=== PATIENT | female | born 1995 | race Caucasian/White ===

== ENCOUNTER 2017-05-30 20:47 | Emergency (ER) | payer SELFPAY ==
[2017-05-30] MEDS ORDERED: Lactated Ringers 1,000 ML IV ONE ×2 (21:00→21:18)
[2017-05-30 21:19] LABS: BASOPHIL % 0.2 % (0.0-0.4); Eosinophil % 1.9 % (0.00-5.0); Granulocytes % 68.6 % (36.0-66.0); Lymphocytes % 22.8 % (24.0-44.0); Mean Cell Volume 86.2 fl (78-100); Mean Platelet Volume 11.7 fl (6-9.5); Monocytes % 6.5 % (0.0-12.0); Platelet Count 159 K/mm3 (150-450); Red Cell Distribution Width 13.7 % (11.5-14.0); White Blood Count 11.5 K/mm3 (4.0-10.5)
--- NOTE | 2017-05-30 21:23 | ERPHSYRPT ---
- History of Present Illness Time Seen by Provider: 05/30/17 20:57 Source: patient Patient Subjective Stated Complaint: PT REPORTS [facility] ESTIMATED HER AT 8 WKS -STATES SHE IS UNSURE HOW ACCURATE THAT IS ET HAVEN'T BEEN ABOUT TO GO TO A DOCTOR YET-DENIES VAGINAL DISCHARGE-PT REPORTS UPPER ABD CRAMPING BEGINNING AT 1800 TONIGHT-AFTER EATING PIZZA CASSEROLE-PT DENIES DIFFICULTY WITH URINATION OR BOWELS-DENIES N/V Triage Nursing Assessment: PT PINK WARM ET DRY-ABD SOFT ET NONTENDER TO PALP- RESP EASY ET NONLABORED-BOWEL SOUNDS PRESENT Physician History: CC: abdominal pain Hx: 21 y/o patient of Dr Cervantes. She is . Recently had positive HCG at [facility]. LMP in March. She has some low right abd pain. No vaginal bleeding. No fever or chills. Ate supper. No prior abdominal surgeries. Pain moderate. Sharp in nature and low. Timing/Duration: today Allergies/Adverse Reactions: No Known Drug Allergies Allergy (Verified 05/30/17 20:59) Hx Tetanus, Diphtheria Vaccination/Date Given: Yes Hx Influenza Vaccination/Date Given: No Hx Pneumococcal Vaccination/Date Given: No - Review of Systems Constitutional: No Fever, No Chills Eyes: No Symptoms Ears, Nose, & Throat: No Symptoms Cardiac: No Chest Pain Abdominal/Gastrointestinal: Abdominal Pain, No Vomiting, No Diarrhea Genitourinary Symptoms: , No Dysuria, No Vaginal Bleeding Skin: No Rash Neurological: No Headache All Other Systems: Reviewed and Negative - Past Medical History Pertinent Past Medical History: No - Past Surgical History Past Surgical History: Yes Neuro Surgical History: Neurological Surgery Other Surgical History: neck and back - Social History Smoking Status: Never smoker Exposure to second hand smoke: Yes Drug Use: none Patient Lives Alone: No - Female History Hx Last Menstrual Period: APRIL 05 2017 Hx Now: No - Nursing Vital Signs Nursing Vital Signs: Initial Vital Signs Temperature 97.4 F 05/30/17 20:51 Pulse Rate 85 05/30/17 20:51 Respiratory Rate 20 05/30/17 20:51 Blood Pressure 123/70 05/30/17 20:51 O2 Sat by Pulse Oximetry 98 05/30/17 20:51 Pain Scale Pain Intensity 2 - Physical Exam General Appearance: alert Eye Exam: PERRL/EOMI Ears, Nose, Throat Exam: normal ENT inspection, moist mucous membranes Neck Exam: normal inspection, non-tender, supple Respiratory Exam: normal breath sounds, lungs clear Cardiovascular Exam: regular rate/rhythm Gastrointestinal/Abdomen Exam: soft, tenderness (low and right, no guarding, no mass) Extremity Exam: normal inspection, normal range of motion Neurologic Exam: alert, oriented x 3, cooperative, sensation nml, No motor deficits Skin Exam: warm, dry, No rash SpO2 Interpretation: normal SpO2: 98 Oxygen Delivery: Room Air - Course Nursing assessment & vital signs reviewed: Yes - Radiology Ultrasound Exam OB and RLQ Ultrasound: Other (per RDMS: 6+4 week IUP with FHR 122, small subchorioinc bleed , ruptured right ovarian corpus lutein cysts, RLQ shows stool in colon, no sign of appendicitis, appendix not visualized.) Ordered Tests: Active Orders 24 hr Category Date Time Status Clean Catch Urine Specimen STAT Care 05/30/17 21:00 Active IV Insertion STAT Care 05/30/17 21:00 Active ABDOMINAL-LIMITED [US] Stat Exams 05/30/17 21:43 Ordered OB TRANSVAGINAL [US] Stat Exams 05/30/17 21:44 Ordered CBC W DIFF Stat Lab 05/30/17 21:16 Completed CMP Stat Lab 05/30/17 21:16 Completed CULTURE,URINE Stat Lab 05/30/17 21:18 Received HCG, Quantitative (Inhouse) Stat Lab 05/30/17 21:16 Completed HCG,QUALITATIVE URINE Stat Lab 05/30/17 21:20 Completed UA W/ MICROSCOPIC Stat Lab 05/30/17 21:18 Completed Medication Summary Discontinued Medications Generic Name Dose Route Start Last Admin Trade Name Rosalind PRN Reason Stop Dose Admin Lactated Ringer's 1,000 mls @ 999 mls/hr 05/30/17 21:00 05/30/17 21:22 Lactated Ringers IV 05/30/17 22:00 999 mls/hr .Q1H1M ONE Administration Lactated Ringer's Confirm 05/30/17 21:18 Lactated Ringers Administered 05/30/17 21:19 Dose 1,000 mls @ ud IV .STK-MED ONE Lab/Rad Data: Laboratory Result Diagrams 05/30/17 21:16 05/30/17 21:16 Laboratory Results 05/30/17 05/30/17 05/30/17 Range/Units 21:20 21:18 21:16 WBC (4.0-10.5) K/mm3 RBC (4.1-5.4) M/mm3 Hgb (12.0-16.0) gm/dl Hct (35-47) % MCV (78-100) fl MCH (26-32) pg MCHC (32-36) g/dl RDW (11.5-14.0) % Plt Count (150-450) K/mm3 MPV (6-9.5) fl Gran % (36.0-66.0) % Lymphocytes % (24.0-44.0) % Monocytes % (0.0-12.0) % Eosinophils % (0.00-5.0) % Basophils % (0.0-0.4) % Basophils # (0-0.4) Sodium (136-145) mEq/L Potassium (3.5-5.1) mEq/L Chloride (98-107) mEq/L Carbon Dioxide (21-32) mEq/L Anion Gap (5-15) MEQ/L BUN (9-20) mg/dL Creatinine (0.55-1.30) mg/dl Estimated GFR ML/MIN Glucose (70-110) MG/DL Calcium (8.5-10.1) mg/dL Total Bilirubin (0.2-1.0) mg/dL AST (15-37) U/L ALT (12-78) U/L Alkaline Phosphatase (46-116) U/L Serum Total Protein (6.4-8.2) gm/dL Albumin (3.4-5.0) g/dL Beta HCG, Quant (0-6) IU/L Ur Collection Type VOID Urine Color YELLOW (YELLOW) Urine Appearance CLEAR (CLEAR) Urine pH 5.0 (5-6) Ur Specific [place] 1.015 (1.005-1.025) Urine Protein NEGATIVE (Negative) Urine Ketones NEGATIVE (NEGATIVE) Urine Blood NEGATIVE (0-5) Yunior/ul Urine Nitrite NEGATIVE (NEGATIVE) Urine Bilirubin NEGATIVE (NEGATIVE) Urine Urobilinogen NORMAL (0-1) mg/dL Ur Leukocyte Esterase TRACE (NEGATIVE) Urine Microscopic RBC 2-5 (0-2) /HPF Urine Microscopic WBC 0-2 (0-5) /HPF Ur Epithelial Cells MODERATE (FEW) /HPF Urine Bacteria MODERATE (NEGATIVE) /HPF Urine Mucus SLIGHT (NEGATIVE) /HPF Urine Glucose NEGATIVE (NEGATIVE) mg/dL Urine HCG, Qual POSITIVE (Negative) Specimen Received 05/30/17 2100 ABO Group A Rh Factor POSITIVE Antibody Screen NEGATIVE (NEGATIVE) 05/30/17 05/30/17 Range/Units 21:16 21:16 WBC 11.5 H (4.0-10.5) K/mm3 RBC 4.50 (4.1-5.4) M/mm3 Hgb 12.6 (12.0-16.0) gm/dl Hct 38.8 (35-47) % MCV 86.2 (78-100) fl MCH 28.0 (26-32) pg MCHC 32.5 (32-36) g/dl RDW 13.7 (11.5-14.0) % Plt Count 159 (150-450) K/mm3 MPV 11.7 H (6-9.5) fl Gran % 68.6 H (36.0-66.0) % Lymphocytes % 22.8 L (24.0-44.0) % Monocytes % 6.5 (0.0-12.0) % Eosinophils % 1.9 (0.00-5.0) % Basophils % 0.2 (0.0-0.4) % Basophils # 0.02 (0-0.4) Sodium 137 (136-145) mEq/L Potassium 3.7 (3.5-5.1) mEq/L Chloride 105 (98-107) mEq/L Carbon Dioxide 27.2 (21-32) mEq/L Anion Gap 8.6 (5-15) MEQ/L BUN 7 L (9-20) mg/dL Creatinine 0.58 (0.55-1.30) mg/dl Estimated GFR > 60 ML/MIN Glucose 94 (70-110) MG/DL Calcium 9.4 (8.5-10.1) mg/dL Total Bilirubin 0.20 (0.2-1.0) mg/dL AST 14 L (15-37) U/L ALT 13 (12-78) U/L Alkaline Phosphatase 78 (46-116) U/L Serum Total Protein 6.9 (6.4-8.2) gm/dL Albumin 3.4 (3.4-5.0) g/dL Beta HCG, Quant 26869 H (0-6) IU/L Ur Collection Type Urine Color (YELLOW) Urine Appearance (CLEAR) Urine pH (5-6) Ur Specific [place] (1.005-1.025) Urine Protein (Negative) Urine Ketones (NEGATIVE) Urine Blood (0-5) Yunior/ul Urine Nitrite (NEGATIVE) Urine Bilirubin (NEGATIVE) Urine Urobilinogen (0-1) mg/dL Ur Leukocyte Esterase (NEGATIVE) Urine Microscopic RBC (0-2) /HPF Urine Microscopic WBC (0-5) /HPF Ur Epithelial Cells (FEW) /HPF Urine Bacteria (NEGATIVE) /HPF Urine Mucus (NEGATIVE) /HPF Urine Glucose (NEGATIVE) mg/dL Urine HCG, Qual (Negative) Specimen Received ABO Group Rh Factor Antibody Screen (NEGATIVE) - Progress Progress Note: 05/30/17 21:23 Bedside sono with empty uterus seen. 05/30/17 23:58 She feels better. Dressed, up and on her phone. Will follow up wit Dr Cervantes. Abd pain instr given. Advised PNV. Counseled pt/family regarding: lab results, diagnosis, need for follow-up, rad results - Departure Time of Disposition: 23:58 Departure Disposition: Home Clinical Impression: abdominal pain in early , 6+4 week intrauterine Condition: Stable Critical Care Time: No Referrals: TELLO CERVANTES MD [ACTIVE STAFF] - Instructions: -- Discomforts and Remedies, Abdominal Pain -- Early Additional Instructions: Rx PNV. Call Dr Cervantes for follow up next week. [place] diet. Return to ER for recurrent vomiting, worsened abdominal pain, fever or concerns. Prescriptions: Vitamins/Fe Sulf/FA [ Tablet] 1 tab PO DAILY #30 tablet
[2017-05-30 21:52] LABS: ADD URINE CULTURE? YES (NO); Bacteria MODERATE /HPF (NEGATIVE); Bilirubin NEGATIVE (NEGATIVE); Blood NEGATIVE Ery/ul (0-5); COMPLETE URINE MICROSCOPIC? YES; Collection Type VOID; Epithelial Cells MODERATE /HPF (FEW); Glucose NEGATIVE (NEGATIVE); Leukocyte Esterase TRACE (NEGATIVE); Mucus SLIGHT /HPF (NEGATIVE); WBC 0-2 /HPF (0-5)
[2017-05-30 22:04] VITALS: BP 119/57; PULSE 76
[2017-05-30 22:05] LABS: ALBUMIN 3.4 g/dL (3.4-5.0); ALKALINE PHOSPHATASE 78 U/L (46-116); ANION GAP 8.6 MEQ/L (5-15); BLOOD UREA NITROGEN 7 mg/dL (9-20); CHLORIDE 105 mEq/L (98-107); Carbon Dioxide 27.2 mEq/L (21-32); Glucose 94 MG/DL (70-110); HCG, Quantitative (Inhouse) 24717 IU/L (0-6); Potassium 3.7 mEq/L (3.5-5.1); SGOT/AST 14 U/L (15-37); SGPT/ALT 13 U/L (12-78); SODIUM 137 mEq/L (136-145); Total Protein 6.9 gm/dL (6.4-8.2)
[2017-05-31] VITALS: O2SAT 98
--- NOTE | 2017-05-31 08:35 | XRAY ---
Indication: Right lower quadrant pain. 2-dimensional transvaginal early OB ultrasound performed. Comparison: None There is a single intrauterine gestational sac with presence of a single yolk sac and pole. Mean crown-rump length measures 0.71 cm corresponding to 6 weeks 4 days. heart rate 122 bpm. Small thin subchorionic hemorrhage measuring 11.8 mm in greatest dimension. Left and right ovaries unremarkable. No suspicious adnexal mass or free fluid. Impression: Single viable intrauterine measuring 6 weeks 4 days. Expected date confinement is January 19, 2018. Tiny subchorionic hemorrhage. Comment: Preliminary report was given.
--- NOTE | 2017-05-31 08:38 | XRAY ---
Indication: Right lower quadrant pain. Two-dimensional targeted right lower quadrant abdominal sonogram performed. Comparison: None Appendix not seen. There is no suspicious solid/cystic mass or abnormal fluid collection. Comment: Preliminary report was given.
== END 2017-05-31 00:08 | disposition home or self-care (01) ==
LOC: ED 20:47
DX: O26.891 Other specified pregnancy related conditions, first trimester (principal); Z3A.01 Less than 8 weeks gestation of pregnancy
CPT/HCPCS: 36000; 36415; 76705; 76817; 80053; 81000; 84702; 84703; 85025; 86850; 86900; 86901; 87086; 96360; 99284; 99285

== ENCOUNTER 2017-11-01 18:47 | Observation (INO) | payer MEDICAID ==
[2017-11-01 20:36] LABS: Appearance HAZY (CLEAR); Bilirubin NEGATIVE (NEGATIVE); Blood NEGATIVE Ery/ul (0-5); Glucose NEGATIVE (NEGATIVE); Ketones NEGATIVE (NEGATIVE); Leukocyte Esterase 2+ (NEGATIVE); Nitrite NEGATIVE (NEGATIVE); Protein,Urine Dip NEGATIVE (Negative); Specific Gravity 1.005 (1.005-1.025); Urobilinogen NORMAL mg/dL (0-1)
[2017-11-01 20:37] LABS: Bacteria MODERATE /HPF (NEGATIVE); Epithelial Cells MODERATE /HPF (FEW); WBC 15-25 /HPF (0-5)
[2017-11-01] MEDS ORDERED: Lactated Ringers 1,000 ML IV ONE (20:49)
[2017-11-01] MEDS ORDERED: TYLENOL 325 MG ONE (20:49)
[2017-11-01] MEDS ORDERED: TYLENOL 325 MG PO PRN (21:01)
[2017-11-01] MEDS ORDERED: ROCEPHIN 1 Gm-D5w 50 ml Bag** 1 G/50 ML IVPB IV ONE (21:10)
[2017-11-01] MEDS ORDERED: Lactated Ringers 1,000 ML IV SCH (21:30)
[2017-11-01 23:17] VITALS: BP 122/73; PULSE 65
[2017-11-02] MEDS ORDERED: ROCEPHIN 1 Gm-D5w 50 ml Bag** 1 G/50 ML IVPB IV SCH (10:00)
== END 2017-11-01 22:50 | disposition home or self-care (01) ==
LOC: UNDOADMOB 18:47 → OB 18:47 → UNDODISOB 22:50
PROVIDERS: ADMIT Family Medicine; ATTEND Family Medicine
DX: Z34.03 Encounter for supervision of normal first pregnancy, third trimester (principal)
CPT/HCPCS: 81000; 87086; G0378; J0696; A9270-GY

== ENCOUNTER 2018-01-19 05:17 | Inpatient (IN) | payer MEDICAID ==
[~2018-01-19 05:17] MED LIST: BRETHINE 1 MG/ML SQ PRN; PITOCIN 30 UNITS/ LR 500 ML 500 ML IV SCH; XYLOCAINE 1% HCL 20 ML MDV IJ PRN
[2018-01-19 05:56] LABS: BASOPHIL % 0.2 % (0.0-0.4); Basophil (Absolute #) 0.03 (0-0.4); Eosinophil % 0.8 % (0.00-5.0); Eosinophil (Absolute #) 0.12 (0-0.5); Granulocyte Absolute (ANC) 10.69 (1.4-6.9); Granulocytes % 74.6 % (36.0-66.0); Hematocrit 36.5 % (35-47); Hemoglobin 11.7 gm/dl (12.0-16.0); Lymphocyte (Absolute #) 2.74 (1.0-4.6); Lymphocytes % 19.1 % (24.0-44.0); Mean Cell Volume 83.1 fl (78-100); Mean Corpuscular Hgb Concent. 32.1 g/dl (32-36); Mean Platelet Volume 12.8 fl (6-9.5); Monocyte (Absolute #) 0.76 (0.0-1.3); Monocytes % 5.3 % (0.0-12.0); Platelet Count 155 K/mm3 (150-450); Red Blood Count 4.39 M/mm3 (4.1-5.4); Red Cell Distribution Width 14.2 % (11.5-14.0); White Blood Count 14.3 K/mm3 (4.0-10.5)
[2018-01-19] MEDS: Lactated Ringers 1,000 ML IV SCH ×2 (05:56→09:44)
[2018-01-19 06:04] LABS: Mean Corpuscular Hemoglobin 26.6 pg (26-32)
[2018-01-19 07:16] LABS: Amphetamine,Urine NEGATIVE (NEGATIVE); Barbiturate,Urine NEGATIVE (NEGATIVE); Benzodiazepine,Urine NEGATIVE (NEGATIVE); Cocaine,Urine NEGATIVE (NEGATIVE); Methadone,Urine NEGATIVE (NEGATIVE); Opiate,Urine NEGATIVE (NEGATIVE); PCP,Urine NEGATIVE (NEGATIVE); THC,Urine NEGATIVE (NEGATIVE)
[2018-01-19] MEDS ORDERED: STADOL 2 MG IV PRN (10:25)
[2018-01-19] MEDS ORDERED: Mylicon 80MG PO PRN (14:16)
[2018-01-19] MEDS ORDERED: Dermoplast Spray TP PRN (14:16)
[2018-01-19] MEDS ORDERED: Restoril 15 MG PO PRN (14:16)
[2018-01-19] MEDS ORDERED: Dulcolax 10 MG SUPP PR PRN (14:16)
[2018-01-19] MEDS ORDERED: Anucort-HC SUPPOSITORY PR PRN (14:16)
[2018-01-19] MEDS ORDERED: TUCKS TP PRN (14:16)
[2018-01-19] MEDS ORDERED: MOTRIN 400 MG PO PRN (14:16)
[2018-01-19] MEDS ORDERED: Ambien 10 MG PO PRN (14:16)
[2018-01-19] MEDS ORDERED: CORTISONE 1% CREAM TP PRN (14:16)
[2018-01-19] MEDS ORDERED: NORCO 5/325 MG PO PRN (14:16)
[2018-01-19] MEDS ORDERED: TYLENOL EXTRA STRENGTH 500 MG PO PRN (14:16)
[2018-01-19] MEDS ORDERED: LANSINOH 40 GM TOP PRN (14:16)
[2018-01-19] MEDS ORDERED: M-M-R II Vaccine With Diluent SQ ONE (16:00)
[2018-01-19] MEDS ORDERED: Adacel Vial IM ONE (16:00)
[2018-01-19] MEDS: Colace 100 MG PO SCH (22:37)
[2018-01-20 05:30] LABS: BASOPHIL % 0.2 % (0.0-0.4); Basophil (Absolute #) 0.03 (0-0.4); Eosinophil % 0.3 % (0.00-5.0); Eosinophil (Absolute #) 0.05 (0-0.5); Granulocyte Absolute (ANC) 14.38 (1.4-6.9); Granulocytes % 76.5 % (36.0-66.0); Hematocrit 32.3 % (35-47); Hemoglobin 10.1 gm/dl (12.0-16.0); Mean Cell Volume 84.1 fl (78-100); Mean Corpuscular Hemoglobin 26.3 pg (26-32); Mean Corpuscular Hgb Concent. 31.3 g/dl (32-36); Mean Platelet Volume 11.7 fl (6-9.5); Monocyte (Absolute #) 1.13 (0.0-1.3); Platelet Count 137 K/mm3 (150-450); Red Blood Count 3.84 M/mm3 (4.1-5.4); Red Cell Distribution Width 14.1 % (11.5-14.0); White Blood Count 18.8 K/mm3 (4.0-10.5)
[2018-01-20] MEDS: Colace 100 MG PO SCH ×2 (12:47→21:57)
[2018-01-20] MEDS: FERREX 150 PO SCH (12:47)
[2018-01-21 05:36] LABS: BASOPHIL % 0.2 % (0.0-0.4); Basophil (Absolute #) 0.03 (0-0.4); Eosinophil % 1.2 % (0.00-5.0); Eosinophil (Absolute #) 0.17 (0-0.5); Granulocyte Absolute (ANC) 9.87 (1.4-6.9); Granulocytes % 69.5 % (36.0-66.0); Hematocrit 32.2 % (35-47); Lymphocyte (Absolute #) 3.16 (1.0-4.6); Lymphocytes % 22.3 % (24.0-44.0); Mean Cell Volume 84.7 fl (78-100); Mean Corpuscular Hemoglobin 26.3 pg (26-32); Mean Corpuscular Hgb Concent. 31.1 g/dl (32-36); Mean Platelet Volume 12.6 fl (6-9.5); Monocyte (Absolute #) 0.96 (0.0-1.3); Monocytes % 6.8 % (0.0-12.0); Platelet Count 168 K/mm3 (150-450); Red Cell Distribution Width 14.3 % (11.5-14.0); White Blood Count 14.2 K/mm3 (4.0-10.5)
--- NOTE | 2018-01-21 09:35 | PCM.DS ---
Discharge Summary Date of Admission: 01/19/18 08:38 Admitting Physician: TELLO CERVANTES Primary Care Provider: TELLO CERVANTES Allergies Allergies No Known Drug Allergies Allergy (Verified 01/19/18 05:46) Hospital Summary - Hospital Course Hospital Course: patient was electively induced on 01/19 and had a spontaneous vaginal delivery with no complications. doing well , no problems or concerns. bottle feeding and well bonded with infant - Vitals & Intake/Output Vital Signs: Vital Signs Temperature 97.7 F 01/21/18 09:00 Pulse Rate 66 01/21/18 09:00 Respiratory Rate 18 01/21/18 09:00 Blood Pressure 111/66 01/21/18 09:00 O2 Sat by Pulse Oximetry Intake & Output: Intake & Output 01/18/18 01/19/18 01/20/18 01/21/18 11:59 11:59 11:59 11:59 Intake Total 60 1989 Balance 60 1989 Weight 86 kg - Lab Result Diagrams: 01/21/18 04:57 Lab Results-Last 24 Hrs: Lab Results-Last 24 Hours 01/21/18 Range/Units 04:57 WBC 14.2 H (4.0-10.5) K/mm3 RBC 3.80 L (4.1-5.4) M/mm3 Hgb 10.0 L (12.0-16.0) gm/dl Hct 32.2 L (35-47) % MCV 84.7 (78-100) fl MCH 26.3 (26-32) pg MCHC 31.1 L (32-36) g/dl RDW 14.3 H (11.5-14.0) % Plt Count 168 (150-450) K/mm3 MPV 12.6 H (6-9.5) fl Gran % 69.5 H (36.0-66.0) % Eos # (Auto) 0.17 (0-0.5) Absolute Lymphs (auto) 3.16 (1.0-4.6) Absolute Monos (auto) 0.96 (0.0-1.3) Lymphocytes % 22.3 L (24.0-44.0) % Monocytes % 6.8 (0.0-12.0) % Eosinophils % 1.2 (0.00-5.0) % Basophils % 0.2 (0.0-0.4) % Absolute Granulocytes 9.87 H (1.4-6.9) Basophils # 0.03 (0-0.4) - Procedures and Test Procedures and Tests throughout Hospitalization: Therapy Orders & Screens 01/19/18 07:28 Smoking Cessation Education ONCE Comment: Diagnosis: induction of labor Smoking Status: Current every day smoker Approximately how many cigarettes per day: 1/2ppd Do you dip or chew tobacco: No Discharge Exam General Appearance: no apparent distress, alert Skin Exam: normal color, warm, dry Respiratory Exam: normal breath sounds, lungs clear, No respiratory distress Cardiovascular Exam: regular rate/rhythm, normal heart sounds Gastrointestinal/Abdomen Exam: soft, No tenderness, No mass Extremity Exam: normal inspection, normal range of motion Final Diagnosis/Problem List - Final Discharge Diagnosis/Problem (1) Vaginal delivery Current Visit: Yes Status: Acute Assessment & Plan: no complications. - Discharge Disposition: Home, Self-Care Condition: Stable Prescriptions: Discontinued Vitamins/Fe Sulf/FA [ Tablet] 1 tab PO DAILY #30 tablet Follow up with: TELLO CERVANTES MD [Primary Care Provider] - 1 Week
[2018-01-21] MEDS: FERREX 150 PO SCH (12:16)
[2018-01-21] MEDS: Colace 100 MG PO SCH (12:16)
[2018-01-21 15:33] VITALS: BP 119/71; PULSE 96
== END 2018-01-21 14:45 | disposition home or self-care (01) | DRG 775 ==
LOC: OB 05:17 → OBSVTOIN 08:38 → OB 08:38
PROVIDERS: ADMIT Family Medicine; ATTEND Family Medicine
PROC: 10E0XZZ Delivery of Products of Conception, External Approach (ICD-10-PCS; principal; 2018-01-19)
DX: O80 Encounter for full-term uncomplicated delivery (principal); Z3A.40 40 weeks gestation of pregnancy; Z37.0 Single live birth
CPT/HCPCS: 36415; 80307; 85025; 90471; 90472; 90707; 90715; G0378; J0595; J2590; A9270-GY

== ENCOUNTER 2018-03-12 23:47 | Emergency (ER) | payer MEDICAID ==
[2018-03-13] MEDS ORDERED: Sodium Chloride 0.9% 1000 ML 1,000 ML IV STA (00:03)
[2018-03-13] MEDS ORDERED: Sodium Chloride 0.9% 1000 ML 1,000 ML ONE (00:06)
--- NOTE | 2018-03-13 00:16 | ERPHSYRPT ---
- History of Present Illness Time Seen by Provider: 03/13/18 00:04 Historian: patient Exam Limitations: no limitations Patient Subjective Stated Complaint: pt c/o pain in her lower abd starting approx 1 week ago. Triage Nursing Assessment: pt alert and oriented, asnwers questions approp. pt ambulatory with steady gait noted. respirations nonlabored wiht lungs cta. skin pink warm and dry. Physician History: Pt is , had about 2 months ago, started c/o suprapubic pain about one week ago, denies nausea, vomiting, fever, chills, or diarrhea, had loose BM today once, no urinary complaints. Her menstrual bleeding returned 2 days ago, apparently she has been bleeding heavier, than her usual menstrual period. Timing/Duration: day(s) (7) Activities at Onset: none Quality: cramping Abdominal Pain Onset Location: suprapubic Pain Radiation: no radiation Severity of Pain-Max: severe Severity of Pain-Current: severe Modifying Factors: Improves With: nothing Associated Symptoms: other (vaginal bleeding) Previous symptoms: no prior history Allergies/Adverse Reactions: No Known Drug Allergies Allergy (Verified 03/13/18 00:04) Hx Tetanus, Diphtheria Vaccination/Date Given: Yes Hx Influenza Vaccination/Date Given: No Hx Pneumococcal Vaccination/Date Given: No Immunizations Up to Date: Yes - Review of Systems Constitutional: No Symptoms Abdominal/Gastrointestinal: Abdominal Pain Genitourinary Symptoms: Vaginal Bleeding All Other Systems: Reviewed and Negative - Past Medical History Pertinent Past Medical History: No Neurological History: No Pertinent History - Past Surgical History Past Surgical History: Yes Neuro Surgical History: Neurological Surgery Other Surgical History: neck and back surgery d/t scoliosis- rods in place in back and neck - Social History Smoking Status: Current every day smoker How long have you smoked: 6yrs Exposure to second hand smoke: Yes Drug Use: none Patient Lives Alone: No - Female History Hx Last Menstrual Period: current Hx Now: No - Nursing Vital Signs Nursing Vital Signs: Initial Vital Signs Temperature 99.6 F 03/12/18 23:51 Pulse Rate 87 03/12/18 23:51 Respiratory Rate 18 03/12/18 23:51 Blood Pressure 126/73 03/12/18 23:51 O2 Sat by Pulse Oximetry 98 03/12/18 23:51 Pain Scale Pain Intensity 2 - Physical Exam General Appearance: no apparent distress Eye Exam: eyes nml inspection Ears, Nose, Throat Exam: normal ENT inspection Neck Exam: normal inspection, non-tender Respiratory Exam: normal breath sounds, lungs clear Cardiovascular Exam: regular rate/rhythm, normal heart sounds, normal peripheral pulses, No murmur Gastrointestinal/Abdomen Exam: soft, normal bowel sounds, tenderness (suprapubic , mild), No distention, No mass, No guarding, No ecchymosis, No pulsatile mass, No hernia Pelvic Exam: normal external exam, adnexal tenderness (left), vaginal bleeding ( minimal, dark blood in vagina, no active bleeding), No adnexal mass, No cervical motion tenderness, No uterine tenderness Back Exam: normal inspection, No CVA tenderness Extremity Exam: normal inspection Neurologic Exam: alert, oriented x 3, normal mood/affect Skin Exam: normal color, warm, dry, No rash Lymphatic Exam: No adenopathy SpO2 Interpretation: normal SpO2: 98 Oxygen Delivery: Room Air - Course Nursing assessment & vital signs reviewed: Yes - CT Exams Abdomen/Pelvis CT Interpretation: Tele-radiologist Report, Other (cholelithiasis and small amount of pericholecystic fluid, multiloculated masslike enlarged left adnexa measuring 5 cm, correlate for pelvic infection and tubo-ovarian abscess, differential could include neoplasm, 4.8x4.4 cm hepatic mass with central scar. ) Ordered Tests: Active Orders 24 hr Category Date Time Status IV Insertion STAT Care 03/13/18 00:03 Active Orthostatic Vital Signs STAT Care 03/13/18 00:04 Active Pelvic Exam Assist STAT Care 03/13/18 02:58 Active ABDOMEN AND PELVIS W CONTRAST [CT] Stat Exams 03/13/18 00:53 Taken BLOOD CULTURE Stat Lab 03/13/18 02:59 Ordered CBC W DIFF Stat Lab 03/13/18 00:14 Completed CMP Stat Lab 03/13/18 00:14 Completed CULTURE,URINE Stat Lab 03/13/18 00:14 Received HCG, Quantitative (Inhouse) Stat Lab 03/13/18 00:14 Completed LIPASE Stat Lab 03/13/18 00:14 Completed Lactic Acid Stat Lab 03/13/18 02:59 Completed PROTIME WITH INR Stat Lab 03/13/18 00:14 Completed UA W/ MICROSCOPIC Stat Lab 03/13/18 00:14 Completed Medication Summary Discontinued Medications Generic Name Dose Route Start Last Admin Trade Name Rosalind PRN Reason Stop Dose Admin Sodium Chloride 1,000 mls @ 999 mls/hr 03/13/18 00:03 03/13/18 00:08 Sodium Chloride 0.9% 1000 Ml IV 03/13/18 01:03 999 mls/hr .Q1H1M STA Administration Sodium Chloride Confirm 03/13/18 00:06 Sodium Chloride 0.9% 1000 Ml Administered 03/13/18 00:07 Dose 1,000 mls @ ud .ROUTE .STK-MED ONE Piperacillin Sod/Tazobactam Sod 3.375 gm in 100 mls @ 200 mls/hr 03/13/18 02: 59 03/13/18 03:09 Zosyn 3.375gm/100 Ml D5w IV 03/13/18 03:28 100 ml/hr STAT STA 100 mls/hr Administration Piperacillin Sod/Tazobactam Sod Confirm 03/13/18 03:02 Zosyn 3.375gm/100 Ml D5w Administered 03/13/18 03:03 Dose 3.375 gm in 100 mls @ ud IV .STK-MED ONE Lab/Rad Data: Laboratory Result Diagrams 03/13/18 00:14 03/13/18 00:14 Laboratory Results 03/13/18 03/13/18 03/13/18 Range/Units 02:59 00:14 00:14 WBC (4.0-10.5) K/mm3 RBC (4.1-5.4) M/mm3 Hgb (12.0-16.0) gm/dl Hct (35-47) % MCV (78-100) fl MCH (26-32) pg MCHC (32-36) g/dl RDW (11.5-14.0) % Plt Count (150-450) K/mm3 MPV (6-9.5) fl Gran % (36.0-66.0) % Eos # (Auto) (0-0.5) Absolute Lymphs (auto) (1.0-4.6) Absolute Monos (auto) (0.0-1.3) Lymphocytes % (24.0-44.0) % Monocytes % (0.0-12.0) % Eosinophils % (0.00-5.0) % Basophils % (0.0-0.4) % Absolute Granulocytes (1.4-6.9) Basophils # (0-0.4) PT 12.6 H (9.95-12.35) SECONDS INR 1.08 (0.8-3.0) Sodium (137-145) mmol/L Potassium (3.5-5.1) mmol/L Chloride (98-107) mmol/L Carbon Dioxide (22-30) mmol/L Anion Gap (5-15) MEQ/L BUN (7-17) mg/dL Creatinine (0.52-1.04) mg/dL Estimated GFR ML/MIN Glucose (74-106) mg/dL Lactic Acid 0.7 (0.4-2.0) Calcium (8.4-10.2) mg/dL Total Bilirubin (0.2-1.3) mg/dL AST (14-36) U/L ALT (0-35) U/L Alkaline Phosphatase (38-126) U/L Serum Total Protein (6.3-8.2) g/dL Albumin (3.5-5.0) g/dL Lipase (23-300) U/L Beta HCG, Quant mIU/ml Ur Collection Type VOID Urine Color LIGHT RED (YELLOW) Urine Appearance CLOUDY (CLEAR) Urine pH 8.0 (5-6) Ur Specific [place] 1.005 (1.005-1.025) Urine Protein TRACE (Negative) Urine Ketones NEGATIVE (NEGATIVE) Urine Blood 250 (0-5) Yunior/ul Urine Nitrite NEGATIVE (NEGATIVE) Urine Bilirubin NEGATIVE (NEGATIVE) Urine Urobilinogen NORMAL (0-1) mg/dL Ur Leukocyte Esterase 1+ (NEGATIVE) Urine Microscopic RBC >100 (0-2) /HPF Urine Microscopic WBC 2-5 (0-5) /HPF Ur Epithelial Cells FEW (FEW) /HPF Urine Bacteria RARE (NEGATIVE) /HPF Urine Mucus MODERATE (NEGATIVE) /HPF Urine Culture Reflexed YES (NO) Urine Glucose NEGATIVE (NEGATIVE) mg/dL Specimen Received 03/13/18 0020 03/13/18 03/13/18 Range/Units 00:14 00:14 WBC 8.9 (4.0-10.5) K/mm3 RBC 4.66 (4.1-5.4) M/mm3 Hgb 11.9 L (12.0-16.0) gm/dl Hct 37.6 (35-47) % MCV 80.7 (78-100) fl MCH 25.5 L (26-32) pg MCHC 31.6 L (32-36) g/dl RDW 15.1 H (11.5-14.0) % Plt Count 279 (150-450) K/mm3 MPV 11.1 H (6-9.5) fl Gran % 64.2 (36.0-66.0) % Eos # (Auto) 0.16 (0-0.5) Absolute Lymphs (auto) 2.50 (1.0-4.6) Absolute Monos (auto) 0.52 (0.0-1.3) Lymphocytes % 28.0 (24.0-44.0) % Monocytes % 5.8 (0.0-12.0) % Eosinophils % 1.8 (0.00-5.0) % Basophils % 0.2 (0.0-0.4) % Absolute Granulocytes 5.72 (1.4-6.9) Basophils # 0.02 (0-0.4) PT (9.95-12.35) SECONDS INR (0.8-3.0) Sodium 144 (137-145) mmol/L Potassium 3.7 (3.5-5.1) mmol/L Chloride 104 (98-107) mmol/L Carbon Dioxide 28 (22-30) mmol/L Anion Gap 15.7 H (5-15) MEQ/L BUN 8 (7-17) mg/dL Creatinine 0.65 (0.52-1.04) mg/dL Estimated GFR > 60.0 ML/MIN Glucose 94 (74-106) mg/dL Lactic Acid (0.4-2.0) Calcium 9.6 (8.4-10.2) mg/dL Total Bilirubin 0.20 (0.2-1.3) mg/dL AST 17 (14-36) U/L ALT 16 (0-35) U/L Alkaline Phosphatase 107 (38-126) U/L Serum Total Protein 8.1 (6.3-8.2) g/dL Albumin 4.4 (3.5-5.0) g/dL Lipase 43 (23-300) U/L Beta HCG, Quant < 2.39 mIU/ml Ur Collection Type Urine Color (YELLOW) Urine Appearance (CLEAR) Urine pH (5-6) Ur Specific [place] (1.005-1.025) Urine Protein (Negative) Urine Ketones (NEGATIVE) Urine Blood (0-5) Yunior/ul Urine Nitrite (NEGATIVE) Urine Bilirubin (NEGATIVE) Urine Urobilinogen (0-1) mg/dL Ur Leukocyte Esterase (NEGATIVE) Urine Microscopic RBC (0-2) /HPF Urine Microscopic WBC (0-5) /HPF Ur Epithelial Cells (FEW) /HPF Urine Bacteria (NEGATIVE) /HPF Urine Mucus (NEGATIVE) /HPF Urine Culture Reflexed (NO) Urine Glucose (NEGATIVE) mg/dL Specimen Received - Progress Progress: improved Progress Note: 03/13/18 03:34 Pt has been stable hemodynamically, not orthostatic, afebrile, not tachycardiac , no severe pain or distress, no severe bleeding noted. I called Dr Cervantes, discussed our findings and her current condition with him, he recommended to contact [facility] Management Specialist for further care. I called Dr Carlota Child ED physician and Dr Cooper Inventory Management Specialist, discussed this case in details, Dr Cooper recommends outpatient follow up, he will see this patient in his office. I informed patient and her sister about this, they agreed. She is stable to be discharged, she was given iv Zosyn, and will be discharged on PO Flagyl and Doxycyclin, also [place] 5/325 mg Po Q6h PRN for pain # 10 . Discussed with : Abelino, Yair (Dr Cooper in [facility] tel : [phone]) Will see patient in: office Counseled pt/family regarding: lab results, diagnosis, need for follow-up, rad results - Departure Time of Disposition: 03:39 Departure Disposition: Home Clinical Impression: Pelvic inflammatory disease (PID) Ovarian cyst Qualifiers: Laterality: left Qualified Code(s): N83.202 - Unspecified ovarian cyst, left side Condition: Stable Critical Care Time: No Referrals: TELLO CERVANTES MD [Primary Care Provider] - Instructions: Ovarian Cyst (DC), Pelvic Inflammatory Disease (DC) Additional Instructions: Rest x 2-3 days, drink plenty of fluids, call Dr Cooper's office (Inventory Management Specialist) in [place], tel: [phone], and make appointment, return if severe pain, bleeding, vomiting, fever> 101 F! Prescriptions: Doxycycline Hyclate 100 mg [Vibramycin 100 MG] 100 mg PO BID #20 tab Metronidazole 500 mg [Flagyl 500 MG] 500 mg PO TID #30 tablet
[2018-03-13 00:18] LABS: BASOPHIL % 0.2 % (0.0-0.4); Basophil (Absolute #) 0.02 (0-0.4); Eosinophil % 1.8 % (0.00-5.0); Eosinophil (Absolute #) 0.16 (0-0.5); Granulocyte Absolute (ANC) 5.72 (1.4-6.9); Granulocytes % 64.2 % (36.0-66.0); Hematocrit 37.6 % (35-47); Hemoglobin 11.9 gm/dl (12.0-16.0); Mean Cell Volume 80.7 fl (78-100); Mean Corpuscular Hemoglobin 25.5 pg (26-32); Mean Corpuscular Hgb Concent. 31.6 g/dl (32-36); Mean Platelet Volume 11.1 fl (6-9.5); Monocyte (Absolute #) 0.52 (0.0-1.3); Monocytes % 5.8 % (0.0-12.0); Platelet Count 279 K/mm3 (150-450); Red Blood Count 4.66 M/mm3 (4.1-5.4); Red Cell Distribution Width 15.1 % (11.5-14.0); White Blood Count 8.9 K/mm3 (4.0-10.5)
[2018-03-13 00:24] LABS: INR 1.08 (0.8-3.0)
[2018-03-13 00:29] LABS: ALBUMIN 4.4 g/dL (3.5-5.0); ALKALINE PHOSPHATASE 107 U/L (38-126); ANION GAP 15.7 MEQ/L (5-15); BLOOD UREA NITROGEN 8 mg/dL (7-17); CHLORIDE 104 mmol/L (98-107); Calcium 9.6 mg/dL (8.4-10.2); Carbon Dioxide 28 mmol/L (22-30); Creatinine 1 0.65 mg/dL (0.52-1.04); Glucose 94 mg/dL (74-106); LIPASE 43 U/L (23-300); Potassium 3.7 mmol/L (3.5-5.1); SGOT/AST 17 U/L (14-36); SGPT/ALT 16 U/L (0-35); SODIUM 144 mmol/L (137-145); Total Protein 8.1 g/dL (6.3-8.2)
[2018-03-13 00:31] LABS: Appearance CLOUDY (CLEAR); Glucose NEGATIVE (NEGATIVE); Leukocyte Esterase 1+ (NEGATIVE); Nitrite NEGATIVE (NEGATIVE); Protein,Urine Dip TRACE (Negative); Specific Gravity 1.005 (1.005-1.025)
[2018-03-13 00:32] LABS: Bacteria RARE /HPF (NEGATIVE); Bilirubin NEGATIVE (NEGATIVE); Blood 250 Ery/ul (0-5); Epithelial Cells FEW /HPF (FEW); Ketones NEGATIVE (NEGATIVE); Mucus MODERATE /HPF (NEGATIVE); RBC >100 /HPF (0-2); Urobilinogen NORMAL mg/dL (0-1)
[2018-03-13 00:46] LABS: HCG, Quantitative (Inhouse) < 2.39 mIU/ml
[2018-03-13] MEDS ORDERED: Zosyn 3.375GM/100 Ml D5W 3.375 GM/100 ML IVPB IV STA (02:59)
[2018-03-13] MEDS ORDERED: Zosyn 3.375GM/100 Ml D5W 3.375 GM/100 ML IVPB IV ONE (03:02)
[2018-03-13] MEDS ORDERED: NORCO 5/325 MG PO ONE (03:44)
[2018-03-13] MEDS ORDERED: NORCO 5/325 MG ONE (03:48)
[2018-03-13 04:05] VITALS: BP 123/79; PULSE 82; O2SAT 100
--- NOTE | 2018-03-13 09:19 | XRAY ---
Indication: Abdominal pain. Multiple contiguous axial images obtained through the abdomen and pelvis using 80 cc Isovue 370 contrast only. Comparison: None Incompletely visualized bilateral posterior spinal hardware extending to the L1 level produces beam artifact. Lung bases demonstrates lingular calcified granuloma. No infiltrate or effusion. Heart is not enlarged. Noncontrasted stomach and bowel loops appear nonobstructed. Normal appendix. Pelvis demonstrates bilateral adnexal cystic masses with peripheral enhancement, largest on the right measuring 4 cm. Left adnexal cysts are multiloculated, largest 2.1 cm. Findings concerning for inflammatory/infectious process. Adjacent sigmoid colon demonstrates moderate wall thickening with stranding probably reactive. Small free fluid but no free air. Gallbladder demonstrates tiny gallstones with tiny pericholecystic fluid. No abnormal biliary distention. Peripheral right lobe of the liver demonstrates linear hypodensity at least 4 cm long possibly central scar as seen in focal nodular hyperplasia. Remaining liver, pancreas, spleen, adrenal glands, kidneys, ureters, bladder, uterus, and aorta appear unremarkable. There are small subcentimeter periaortic nodes. No pathologic retroperitoneal lymphadenopathy. Osseous structures intact. Impression: 1. Bilateral adnexal enhancing cystic masses as detailed with small free fluid. Rule out tubo-ovarian abscess. Adjacent sigmoid bowel wall thickening with stranding possibly reactive. Cystic malignancy not completely excluded. 2. Small periaortic lymph nodes presumed reactive. 3. Gallstones with tiny pericholecystic fluid better evaluated with ultrasound. 4. Hepatic linear hypodensity possible central scar is seen in focal nodular hyperplasia. Comment: Preliminary interpretation was made by [facility]. No discrepancy. CT DI 23.68
== END 2018-03-13 04:09 | disposition home or self-care (01) ==
LOC: ED 23:47
DX: N73.9 Female pelvic inflammatory disease, unspecified (principal); N83.202 Unspecified ovarian cyst, left side
CPT/HCPCS: 36000; 36415; 74177; 80053; 81000; 83605; 83690; 84702; 85025; 85610; 87040; 87086; 99284; J2543; A9270-GY

== ENCOUNTER 2020-06-06 01:33 | Observation (INO) | payer OTHER ==
[2020-06-06 01:55] LABS: Appearance SLIGHTLY CLOUDY (CLEAR); Bacteria FEW /HPF (NEGATIVE); Bilirubin NEGATIVE (NEGATIVE); Blood LARGE Ery/ul (0-5); Epithelial Cells FEW /HPF (FEW); Glucose NEGATIVE (NEGATIVE); Ketones TRACE (NEGATIVE); Leukocyte Esterase LARGE (NEGATIVE); Mucus SLIGHT /HPF (NEGATIVE); Nitrite NEGATIVE (NEGATIVE); Protein,Urine Dip 100 (Negative); Specific Gravity 1.002 (1.005-1.025); Urobilinogen NEGATIVE mg/dL (0-1); WBC 51-100 /HPF (0-5)
[2020-06-06 02:05] LABS: Amphetamine,Urine NEGATIVE (NEGATIVE); Barbiturate,Urine NEGATIVE (NEGATIVE); Benzodiazepine,Urine NEGATIVE (NEGATIVE); Cocaine,Urine NEGATIVE (NEGATIVE); Methadone,Urine NEGATIVE (NEGATIVE); Opiate,Urine NEGATIVE (NEGATIVE); PCP,Urine NEGATIVE (NEGATIVE); THC,Urine NEGATIVE (NEGATIVE)
[2020-06-06 03:53] VITALS: BP 127/82; PULSE 70; O2SAT 100
== END 2020-06-06 02:50 | disposition home or self-care (01) ==
LOC: OB 01:33
PROVIDERS: ADMIT Family Medicine; ATTEND Family Medicine
DX: Z34.83 Encounter for supervision of other normal pregnancy, third trimester (principal); Z3A.30 30 weeks gestation of pregnancy
CPT/HCPCS: 80307; 81001; 87086; G0378; 87077; 87186

== ENCOUNTER 2020-08-05 13:29 | Inpatient (IN) | payer OTHER ==
[2020-08-05] MEDS ORDERED: BRETHINE 1 MG/ML SQ PRN (15:11)
[2020-08-05] MEDS ORDERED: STADOL 2 MG IV PRN (15:11)
[2020-08-05] MEDS ORDERED: NORCO 5/325 MG PO PRN (15:11)
[2020-08-05] MEDS ORDERED: OB EPIDURAL NAROPIN/SUFENTANIL IN NACL EPIDURAL PRN (15:11)
[2020-08-05] MEDS ORDERED: Lactated Ringers 1,000 ML IV ONE (15:11)
[2020-08-05] MEDS ORDERED: Zofran 4 MG/2 ML VIAL IV PRN (15:11)
[2020-08-05] MEDS ORDERED: Ephedrine Sulfate 50 MG/ML IV PRN (15:11)
[2020-08-05] MEDS ORDERED: Nubain 10 MG/ML IV PRN (15:11)
[2020-08-05] MEDS ORDERED: TYLENOL EXTRA STRENGTH 500 MG PO PRN (15:11)
[2020-08-05] MEDS ORDERED: XYLOCAINE 1% HCL 20 ML MDV IJ PRN (15:11)
[2020-08-05] MEDS ORDERED: Dermoplast Spray TP PRN (15:11)
[2020-08-05] MEDS ORDERED: Phenergan 25 MG INJ IV PRN (15:11)
[2020-08-05] MEDS ORDERED: LANSINOH 40 GM TOP PRN (15:11)
[2020-08-05] MEDS ORDERED: MOTRIN 400 MG PO PRN (15:11)
[2020-08-05] MEDS ORDERED: Lactated Ringers 1,000 ML IV SCH (15:30)
[2020-08-05] MEDS ORDERED: PITOCIN 30 UNITS/ LR 500 ML 30 UNITS/500 ML IV.SOLN. IV SCH ×2 (15:30)
[2020-08-05 16:31] LABS: Hematocrit 36.5 % (35-47); Hemoglobin 11.8 gm/dl (12.0-16.0); Mean Cell Volume 84.5 fl (78-100); Mean Corpuscular Hemoglobin 27.3 pg (26-32); Mean Corpuscular Hgb Concent. 32.3 g/dl (32-36); Mean Platelet Volume 11.7 fl (7.5-11.0); Platelet Count 172 K/mm3 (150-450); Red Blood Count 4.32 M/mm3 (4.1-5.4); Red Cell Distribution Width 14.7 % (11.5-14.0); White Blood Count 11.6 K/mm3 (4.0-10.5)
[2020-08-05 16:46] LABS: Amphetamine,Urine NEGATIVE (NEGATIVE); Barbiturate,Urine NEGATIVE (NEGATIVE); Benzodiazepine,Urine NEGATIVE (NEGATIVE); Cocaine,Urine NEGATIVE (NEGATIVE); Methadone,Urine NEGATIVE (NEGATIVE); Opiate,Urine NEGATIVE (NEGATIVE); PCP,Urine NEGATIVE (NEGATIVE); THC,Urine NEGATIVE (NEGATIVE)
[2020-08-05] MEDS ORDERED: STADOL 2 MG IV ONE (19:01)
[2020-08-06 06:46] LABS: BASOPHIL % 0.1 % (0.0-0.4); Basophil (Absolute #) 0.02 (0-0.4); Eosinophil % 0.2 % (0.00-5.0); Eosinophil (Absolute #) 0.03 (0-0.5); Hematocrit 36.1 % (35-47); Hemoglobin 11.6 gm/dl (12.0-16.0); Lymphocyte (Absolute #) 2.34 (1.0-4.6); Lymphocytes % 16.5 % (24.0-44.0); Mean Cell Volume 85.3 fl (78-100); Mean Corpuscular Hemoglobin 27.4 pg (26-32); Mean Corpuscular Hgb Concent. 32.1 g/dl (32-36); Mean Platelet Volume 11.9 fl (7.5-11.0); Monocyte (Absolute #) 0.68 (0.0-1.3); Monocytes % 4.8 % (0.0-12.0); Neutrophil % 78.4 % (36.0-66.0); Platelet Count 174 K/mm3 (150-450); Red Blood Count 4.23 M/mm3 (4.1-5.4); Red Cell Distribution Width 14.6 % (11.5-14.0); White Blood Count 14.2 K/mm3 (4.0-10.5)
[2020-08-06] MEDS: FERREX 150 PO SCH (10:00)
[2020-08-06 11:35] VITALS: O2SAT 98
[2020-08-06] MEDS: Colace 100 MG PO SCH (22:32)
--- NOTE | 2020-08-07 08:47 | PCM.DS ---
Discharge Summary Date of Admission: 08/05/20 13:29 Admitting Physician: TELLO CERVANTES Primary Care Provider: TELLO CERVANTES Allergies Allergies No Known Drug Allergies Allergy (Verified 06/06/20 02:05) Hospital Summary - Hospital Course Hospital Course: arrived in spont labor, delivered with no complications, no repair. bottle feeding - Vitals & Intake/Output Vital Signs: Vital Signs Temperature 98 F 08/06/20 20:00 Pulse Rate 78 08/06/20 20:00 Respiratory Rate 18 08/06/20 20:00 Blood Pressure 133/83 08/06/20 20:00 O2 Sat by Pulse Oximetry 98 08/06/20 20:00 Intake & Output: Intake & Output 08/04/20 08/05/20 08/06/20 08/07/20 11:59 11:59 11:59 11:59 Intake Total 1250 600 Output Total 1 Balance 1249 600 Weight 93.44 kg - Lab Result Diagrams: 08/06/20 06:00 - Procedures and Test Procedures and Tests throughout Hospitalization: Therapy Orders & Screens 08/05/20 17:20 Smoking Cessation Education ONCE Comment: Diagnosis: FTIUP Smoking Status: Current every day smoker How long have you smoked: 6 yrs Approximately how many cigarettes per day: 7 Do you dip or chew tobacco: No Discharge Exam General Appearance: no apparent distress, alert Respiratory Exam: normal breath sounds, lungs clear, No respiratory distress Cardiovascular Exam: regular rate/rhythm, normal heart sounds Gastrointestinal/Abdomen Exam: soft, No tenderness, No mass Extremity Exam: normal inspection, normal range of motion Skin Exam: normal color, warm, dry Final Diagnosis/Problem List - Final Discharge Diagnosis/Problem (1) Vaginal delivery Current Visit: No Status: Acute Code(s): O80 - ENCOUNTER FOR FULL-TERM UNCOMPLICATED DELIVERY - Discharge Disposition: Home, Self-Care Condition: Stable Prescriptions: Continue Cephalexin Mh 500 mg [Keflex 500 mg] 500 mg PO TID 7 Days #21 capsule Discontinued Vits W-Ca,Fe,FA(<1Mg) [] 1 tab PO DAILY Follow up with: TELLO CERVANTES MD [Primary Care Provider] -
[2020-08-07 11:16] VITALS: BP 130/79; PULSE 84
[2020-08-07] MEDS: Colace 100 MG PO SCH (12:32)
[2020-08-07] MEDS: FERREX 150 PO SCH (12:32)
== END 2020-08-07 12:55 | disposition home or self-care (01) | DRG 807 ==
LOC: OB 13:29 → OBSVTOIN 13:29 → ICU 08-06 20:25
PROVIDERS: ADMIT Family Medicine; ATTEND Family Medicine
PROC: 10E0XZZ Delivery of Products of Conception, External Approach (ICD-10-PCS; principal; 2020-08-05)
DX: O80 Encounter for full-term uncomplicated delivery (principal); Z37.0 Single live birth; Z3A.39 39 weeks gestation of pregnancy
CPT/HCPCS: 36415; 76815; 80307; 81003; 83986; 84112; 85025; 85027; 87340; G0378; J0595; J2590; A9270-GY

== ENCOUNTER 2021-03-01 15:15 | Emergency (ER) | payer OTHER ==
[2021-03-01] MEDS ORDERED: Sodium Chloride 0.9% 1000 ML 1,000 ML IV STA (15:43)
[2021-03-01] MEDS ORDERED: TORAdol 30 mg Injection IV ONE (15:43)
[2021-03-01] MEDS ORDERED: Sodium Chloride 0.9% 1000 ML 1,000 ML ONE (15:49)
[2021-03-01] MEDS ORDERED: TORAdol 30 mg Injection ONE (15:49)
[2021-03-01 16:09] LABS: Absolute Neutrophil Ct (ANC) 5.34 (1.4-6.9); BASOPHIL % 0.3 % (0.0-0.4); Basophil (Absolute #) 0.02 (0-0.4); Eosinophil % 0.8 % (0.00-5.0); Eosinophil (Absolute #) 0.06 (0-0.5); Hematocrit 39.1 % (35-47); Hemoglobin 11.9 gm/dl (12.0-16.0); Lymphocyte (Absolute #) 1.35 (1.0-4.6); Lymphocytes % 18.7 % (24.0-44.0); Mean Cell Volume 85.4 fl (78-100); Mean Corpuscular Hgb Concent. 30.4 g/dl (32-36); Mean Platelet Volume 11.2 fl (7.5-11.0); Monocyte (Absolute #) 0.45 (0.0-1.3); Monocytes % 6.2 % (0.0-12.0); Platelet Count 260 K/mm3 (150-450); Red Blood Count 4.58 M/mm3 (4.1-5.4); Red Cell Distribution Width 14.8 % (11.5-14.0); White Blood Count 7.2 K/mm3 (4.0-10.5)
[2021-03-01 16:35] LABS: Appearance SLIGHTLY CLOUDY (CLEAR); Bacteria FEW /HPF (NEGATIVE); Bilirubin NEGATIVE (NEGATIVE); Blood LARGE Ery/ul (0-5); Epithelial Cells RARE /HPF (FEW); Glucose NEGATIVE (NEGATIVE); Ketones NEGATIVE (NEGATIVE); Leukocyte Esterase MODERATE (NEGATIVE); Mucus SLIGHT /HPF (NEGATIVE); Nitrite NEGATIVE (NEGATIVE); Protein,Urine Dip NEGATIVE (Negative); Specific Gravity 1.005 (1.005-1.025); Urobilinogen NEGATIVE mg/dL (0-1); WBC 51-100 /HPF (0-5)
[2021-03-01 16:35] LABS: ALBUMIN 4.2 g/dL (3.5-5.0); ALKALINE PHOSPHATASE 68 U/L (38-126); BLOOD UREA NITROGEN 7 mg/dL (7-17); CHLORIDE 105 mmol/L (98-107); Calcium 9.4 mg/dL (8.4-10.2); Carbon Dioxide 23 mmol/L (22-30); Creatinine 1 0.59 mg/dL (0.52-1.04); EST GLOMERULAR FILTRATION RATE > 60.0 ML/MIN; Glucose 109 mg/dL (74-106); LIPASE 30 U/L (23-300); Potassium 4.3 mmol/L (3.5-5.1); SGOT/AST 27 U/L (14-36); SGPT/ALT 17 U/L (0-35); SODIUM 138 mmol/L (137-145); Total Protein 7.3 g/dL (6.3-8.2)
[2021-03-01 16:37] LABS: RBC >101 /HPF (0-2)
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
[2021-03-01 19:18] VITALS: O2SAT 100
[2021-03-01] MEDS ORDERED: ROCEPHIN 1 Gm-D5w 50 ml Bag** 1 G/50 ML IVPB IV ONE ×2 (19:19→19:21)
[2021-03-01 19:20] VITALS: PULSE 81
[2021-03-01 20:04] VITALS: BP 142/80
--- NOTE | 2021-03-02 08:52 | XRAY ---
Indication: Bleeding. Positive test. Two-dimensional transabdominal and transvaginal early OB ultrasound performed. Comparison: None for this . Uterus anteverted without focal solid/cystic mass or intrauterine . Endometrial stripe measures 1.1 cm. Neither ovaries are visualized. There is a 7.9 x 6.6 x 7 cm heterogeneous mass posterior to the uterus without color flow, pole, or heart tones. No free fluid/air. Partial differential includes ectopic , endometrioma, tubo-ovarian abscess, or benign/malignant tumors. Impression: 1. Negative for intrauterine . 2. Heterogeneous mass posterior to the uterus with partial differential offered above. Comment: Preliminary report was given to the ordering clinician.
== END 2021-03-01 19:52 | disposition home or self-care (01) ==
LOC: ED 15:15
DX: O23.41 Unspecified infection of urinary tract in pregnancy, first trimester (principal); O34.81 Maternal care for other abnormalities of pelvic organs, first trimester; Z3A.00 Weeks of gestation of pregnancy not specified
CPT/HCPCS: 36000; 36415; 76801; 80053; 81001; 83690; 84702; 84703; 85025; 87086; 96360; 96365; 96374; 99284; J0696; J1885

== ENCOUNTER 2021-05-01 14:32 | Observation (INO) | payer OTHER ==
[2021-06-05] MEDS ORDERED: CEFAZOLIN 2 GM-D5W BAG** 2 GM/50 ML ML IV ONE (07:22)
[2021-06-05] MEDS ORDERED: Lactated Ringers 1,000 ML IV ONE ×2 (07:22→12:11)
[2021-06-05] MEDS ORDERED: CEFAZOLIN 2 GM-D5W BAG** 2 GM/50 ML ML IV SCH (07:30)
[2021-06-05] MEDS: Lactated Ringers 1,000 ML IV SCH (07:34)
[2021-06-05 08:02] LABS: ALBUMIN 3.9 g/dL (3.5-5.0); ALKALINE PHOSPHATASE 72 U/L (38-126); ANION GAP 9.3 MEQ/L (5-15); BLOOD UREA NITROGEN 7 mg/dL (7-17); CHLORIDE 106 mmol/L (98-107); Calcium 9.1 mg/dL (8.4-10.2); Carbon Dioxide 23 mmol/L (22-30); Creatinine 1 0.64 mg/dL (0.52-1.04); EST GLOMERULAR FILTRATION RATE > 60.0 ML/MIN; Glucose 96 mg/dL (74-106); SGOT/AST 23 U/L (14-36); SGPT/ALT 29 U/L (0-35); SODIUM 135 mmol/L (137-145); Total Protein 7.1 g/dL (6.3-8.2)
[2021-06-05 08:03] LABS: Hematocrit 37.8 % (35-47); Hemoglobin 11.5 gm/dl (12.0-16.0); Mean Cell Volume 83.1 fl (78-100); Mean Corpuscular Hemoglobin 25.3 pg (26-32); Mean Corpuscular Hgb Concent. 30.4 g/dl (32-36); Platelet Count 191 K/mm3 (150-450); Red Blood Count 4.55 M/mm3 (4.1-5.4); Red Cell Distribution Width 16.2 % (11.5-14.0); White Blood Count 5.8 K/mm3 (4.0-10.5)
[2021-06-05] MEDS ORDERED: SUBLIMAZE 100 MCG/2 ML ONE ×2 (10:06→10:39)
[2021-06-05] MEDS ORDERED: Versed 2 MG/2 ML Injection ONE (10:06)
[2021-06-05] MEDS ORDERED: Xylocaine-Mpf 2% 5 Ml Vial ONE (10:08)
[2021-06-05] MEDS ORDERED: Zofran 4 MG/2 ML VIAL ONE (10:08)
[2021-06-05] MEDS ORDERED: DIPRIVAN 200 MG/20 ML IV ONE (10:08)
[2021-06-05] MEDS ORDERED: Decadron 4 MG INJ ONE ×2 (10:08→11:00)
[2021-06-05] MEDS ORDERED: BRIDION 200MG/2ML IV ONE (10:56)
[2021-06-05] MEDS ORDERED: TORAdol 30 mg Injection ONE (10:56)
[2021-06-05] MEDS ORDERED: EPINEPHRINE 1MG/ML AMP ONE (11:00)
[2021-06-05] MEDS ORDERED: Naropin 0.5% 30 ML VIAL ONE (11:00)
[2021-06-05 11:44] LABS: Appearance CLEAR (CLEAR); Bilirubin NEGATIVE (NEGATIVE); Blood MODERATE Ery/ul (0-5); Glucose NEGATIVE (NEGATIVE); Ketones NEGATIVE (NEGATIVE); Leukocyte Esterase NEGATIVE (NEGATIVE); Nitrite NEGATIVE (NEGATIVE); Protein,Urine Dip NEGATIVE (Negative); Specific Gravity 1.004 (1.005-1.025); Urobilinogen NEGATIVE mg/dL (0-1)
[2021-06-05] MEDS ORDERED: Morphine PCA 1 MG/ML 30 ML IV PRN (13:09)
[2021-06-05] MEDS ORDERED: Zofran 4 MG/2 ML VIAL IV PRN (13:14)
[2021-06-05] MEDS ORDERED: TORAdol 30 mg Injection IV PRN (13:27)
[2021-06-05] MEDS: Mylicon 80MG PO SCH ×2 (17:11→21:29)
[2021-06-05] MEDS: Reglan 10 MG/2 ML IV SCH ×2 (17:20→21:29)
[2021-06-05 18:24] LABS: Absolute Neutrophil Ct (ANC) 8.28 (1.4-6.9); BASOPHIL % 0.1 % (0.0-0.4); Basophil (Absolute #) 0.01 (0-0.4); Eosinophil % 0.1 % (0.00-5.0); Eosinophil (Absolute #) 0.01 (0-0.5); Hematocrit 40.4 % (35-47); Hemoglobin 12.4 gm/dl (12.0-16.0); Lymphocyte (Absolute #) 1.14 (1.0-4.6); Lymphocytes % 11.9 % (24.0-44.0); Mean Cell Volume 82.3 fl (78-100); Mean Corpuscular Hemoglobin 25.3 pg (26-32); Mean Corpuscular Hgb Concent. 30.7 g/dl (32-36); Mean Platelet Volume 11.3 fl (7.5-11.0); Monocyte (Absolute #) 0.16 (0.0-1.3); Monocytes % 1.7 % (0.0-12.0); Neutrophil % 86.2 % (36.0-66.0); Platelet Count 190 K/mm3 (150-450); Red Blood Count 4.91 M/mm3 (4.1-5.4); Red Cell Distribution Width 16.2 % (11.5-14.0); White Blood Count 9.6 K/mm3 (4.0-10.5)
[2021-06-05] MEDS: CEFAZOLIN 2 GM-D5W BAG** 2 GM/50 ML ML IV SCH (19:33)
[2021-06-05] MEDS: Colace 100 MG PO SCH (21:29)
[2021-06-06] MEDS: CEFAZOLIN 2 GM-D5W BAG** 2 GM/50 ML ML IV SCH (03:12)
[2021-06-06] MEDS: Lactated Ringers 1,000 ML IV SCH ×2 (03:13→03:14)
[2021-06-06] MEDS: Mylicon 80MG PO SCH (05:18)
[2021-06-06] MEDS: Reglan 10 MG/2 ML IV SCH (05:18)
--- NOTE | 2021-06-06 07:32 | PCM.NOTE ---
Date and Time: 06/06/21729 Subjective Assessment: POD 1 SP LAPAROTOMY RIGHT OPHORECTOMY PT RESTING IN BED AN DDOING WELL WITHOUT COMPLAINTS ABLE TO AMBULATE AND TOLERATE DIET VSS AFEBRILE ABD; SOFT INCISION C/D/INTACT EXT; NO CYANOSIS OR EDEMA A/P SP LAPAROTOMY RIGHT OPHORECTOMY SECONDARY TO LARGE DERMOID CYST DC HOME TODAY FU OFFICE NEXT FRIDAY Objective Exam Wound Assessment: Skin/Wound Assessment Wound/Incision Assessment Start: 06/05/21 13:57 Text: Status: Active Freq: Q4H Protocol: Document 06/06/21 04:00 ST (Rec: 06/06/21 04:31 ST [id number]) Wound/Incision Assessment Lower Anterior Abdomen Wound Assessment Shift Assessment Wound Type Incision Dressing Status Dry & Intact Drainage Amount Minimal Primary Dressing Absorbant Pad Wound Photo Photo Taken No OBJECTIVE DATA Vital Signs: Vital Signs - 24 hr Temp Pulse Resp BP Pulse Ox 06/06/21 04:00 16 06/06/21 03:36 98.6 F 66 16 131/72 97 06/06/21 00:00 16 06/05/21 23:55 98.7 F 67 16 125/58 99 06/05/21 19:49 16 06/05/21 19:32 98.7 F 61 16 121/60 96 06/05/21 16:00 16 06/05/21 14:10 98.7 F 76 16 132/87 96 06/05/21 08:17 98.7 F 63 16 127/69 97 06/05/21 08:09 98.7 F 63 16 127/69 97 06/05/21 07:35 98.7 F 63 16 127/69 97 Pain Assessment - Last Documented Pain Intensity 3 Pain Scale Used 0-10 Pain Scale Intake and Output: Intake & Output 06/03/21 06/04/21 06/05/21 06/06/21 11:59 11:59 11:59 11:59 Intake Total 2386 Balance 2386 Weight 91.5 kg 93.1 kg Lab Results: Lab Results-Last 24 Hours 06/05/21 06/05/21 06/05/21 Range/Units 07:38 07:38 07:55 WBC 5.8 (4.0-10.5) K/mm3 RBC 4.55 (4.1-5.4) M/mm3 Hgb 11.5 L (12.0-16.0) gm/dl Hct 37.8 (35-47) % MCV 83.1 (78-100) fl MCH 25.3 L (26-32) pg MCHC 30.4 L (32-36) g/dl RDW 16.2 H (11.5-14.0) % Plt Count 191 (150-450) K/mm3 MPV 11.0 (7.5-11.0) fl Gran % (36.0-66.0) % Eos # (Auto) (0-0.5) Absolute Lymphs (auto) (1.0-4.6) Absolute Monos (auto) (0.0-1.3) Lymphocytes % (24.0-44.0) % Monocytes % (0.0-12.0) % Eosinophils % (0.00-5.0) % Basophils % (0.0-0.4) % Absolute Granulocytes (1.4-6.9) Basophils # (0-0.4) Sodium 135 L (137-145) mmol/L Potassium 4.0 (3.5-5.1) mmol/L Chloride 106 (98-107) mmol/L Carbon Dioxide 23 (22-30) mmol/L Anion Gap 9.3 (5-15) MEQ/L BUN 7 (7-17) mg/dL Creatinine 0.64 (0.52-1.04) mg/dL Estimated GFR > 60.0 ML/MIN Glucose 96 (74-106) mg/dL Calcium 9.1 (8.4-10.2) mg/dL Total Bilirubin 0.30 (0.2-1.3) mg/dL AST 23 (14-36) U/L ALT 29 (0-35) U/L Alkaline Phosphatase 72 (38-126) U/L Serum Total Protein 7.1 (6.3-8.2) g/dL Albumin 3.9 (3.5-5.0) g/dL Urine Color (YELLOW) Urine Appearance (CLEAR) Urine pH (5-6) Ur Specific [place] (1.005-1.025) Urine Protein (Negative) Urine Ketones (NEGATIVE) Urine Blood (0-5) Yunior/ul Urine Nitrite (NEGATIVE) Urine Bilirubin (NEGATIVE) Urine Urobilinogen (0-1) mg/dL Ur Leukocyte Esterase (NEGATIVE) Urine WBC (Auto) (0-5) /HPF Urine RBC (Auto) (0-2) /HPF U Epithel Cells (Auto) (FEW) /HPF Urine Bacteria (Auto) (NEGATIVE) /HPF Urine Glucose (NEGATIVE) mg/dL SARS-CoV-2 (PCR) NEGATIVE (NEGATIVE) 06/05/21 06/05/21 Range/Units 10:28 18:21 WBC 9.6 (4.0-10.5) K/mm3 RBC 4.91 (4.1-5.4) M/mm3 Hgb 12.4 (12.0-16.0) gm/dl Hct 40.4 (35-47) % MCV 82.3 (78-100) fl MCH 25.3 L (26-32) pg MCHC 30.7 L (32-36) g/dl RDW 16.2 H (11.5-14.0) % Plt Count 190 (150-450) K/mm3 MPV 11.3 H (7.5-11.0) fl Gran % 86.2 H (36.0-66.0) % Eos # (Auto) 0.01 (0-0.5) Absolute Lymphs (auto) 1.14 (1.0-4.6) Absolute Monos (auto) 0.16 (0.0-1.3) Lymphocytes % 11.9 L (24.0-44.0) % Monocytes % 1.7 (0.0-12.0) % Eosinophils % 0.1 (0.00-5.0) % Basophils % 0.1 (0.0-0.4) % Absolute Granulocytes 8.28 H (1.4-6.9) Basophils # 0.01 (0-0.4) Sodium (137-145) mmol/L Potassium (3.5-5.1) mmol/L Chloride (98-107) mmol/L Carbon Dioxide (22-30) mmol/L Anion Gap (5-15) MEQ/L BUN (7-17) mg/dL Creatinine (0.52-1.04) mg/dL Estimated GFR ML/MIN Glucose (74-106) mg/dL Calcium (8.4-10.2) mg/dL Total Bilirubin (0.2-1.3) mg/dL AST (14-36) U/L ALT (0-35) U/L Alkaline Phosphatase (38-126) U/L Serum Total Protein (6.3-8.2) g/dL Albumin (3.5-5.0) g/dL Urine Color STRAW (YELLOW) Urine Appearance CLEAR (CLEAR) Urine pH 7.0 (5-6) Ur Specific [place] 1.004 (1.005-1.025) Urine Protein NEGATIVE (Negative) Urine Ketones NEGATIVE (NEGATIVE) Urine Blood MODERATE (0-5) Yunior/ul Urine Nitrite NEGATIVE (NEGATIVE) Urine Bilirubin NEGATIVE (NEGATIVE) Urine Urobilinogen NEGATIVE (0-1) mg/dL Ur Leukocyte Esterase NEGATIVE (NEGATIVE) Urine WBC (Auto) 3-5 (0-5) /HPF Urine RBC (Auto) NONE (0-2) /HPF U Epithel Cells (Auto) NONE (FEW) /HPF Urine Bacteria (Auto) NONE (NEGATIVE) /HPF Urine Glucose NEGATIVE (NEGATIVE) mg/dL SARS-CoV-2 (PCR) (NEGATIVE) Assessment/Plan (1) S/P laparotomy Current Visit: Yes Status: Acute Code(s): Z98.890 - OTHER SPECIFIED POSTPROCEDURAL STATES (2) S/P right oophorectomy Current Visit: Yes Status: Acute Code(s): Z90.721 - ACQUIRED ABSENCE OF OVARIES, UNILATERAL
--- NOTE | 2021-06-06 07:37 | PCM.DS ---
Discharge Summary Date of Admission: 06/05/21 06:24 Admitting Physician: PITA MICHAUD DO Primary Care Provider: TELLO CERVANTES Allergies Allergies No Known Drug Allergies Allergy (Verified 05/25/21 14:45) Hospital Summary - Hospital Course Hospital Course: PT ADMITTED YESTERDAY FOR UNDERGOING LAPAROTOMY RIGHT OPHORECTOMY SECONDARY TO LARGE RIGHT DERMOID CYST AND UNDERWENT PROCEDURE WITHOUT COMPLICAITON. DURING POSTOP PERIOD DID WELL ABLE TO AMBULATE AND TOLERATE DIET. LABS REVIEWED. PT AT THIS TIME STABLE FOR DISCHARGE AND WAS GIVEN NORCO UPON DISCHARGE SENT TO PHARMACY. ALL QUESTIONS ANSWERED TO HER SATISFACTION.. ADVISED TO FU 1 WK FOR POSTOP CHECK. - Vitals & Intake/Output Vital Signs: Vital Signs Temperature 98.6 F 06/06/21 03:36 Pulse Rate 66 06/06/21 03:36 Respiratory Rate 16 06/06/21 04:00 Blood Pressure 131/72 06/06/21 03:36 O2 Sat by Pulse Oximetry 97 06/06/21 03:36 Intake & Output: Intake & Output 06/03/21 06/04/21 06/05/21 06/06/21 11:59 11:59 11:59 11:59 Intake Total 2386 Balance 2386 Weight 91.5 kg 93.1 kg - Lab Result Diagrams: 06/05/21 18:21 06/05/21 07:38 Lab Results-Last 24 Hrs: Lab Results-Last 24 Hours 06/05/21 06/05/21 06/05/21 Range/Units 07:38 07:38 07:55 WBC 5.8 (4.0-10.5) K/mm3 RBC 4.55 (4.1-5.4) M/mm3 Hgb 11.5 L (12.0-16.0) gm/dl Hct 37.8 (35-47) % MCV 83.1 (78-100) fl MCH 25.3 L (26-32) pg MCHC 30.4 L (32-36) g/dl RDW 16.2 H (11.5-14.0) % Plt Count 191 (150-450) K/mm3 MPV 11.0 (7.5-11.0) fl Gran % (36.0-66.0) % Eos # (Auto) (0-0.5) Absolute Lymphs (auto) (1.0-4.6) Absolute Monos (auto) (0.0-1.3) Lymphocytes % (24.0-44.0) % Monocytes % (0.0-12.0) % Eosinophils % (0.00-5.0) % Basophils % (0.0-0.4) % Absolute Granulocytes (1.4-6.9) Basophils # (0-0.4) Sodium 135 L (137-145) mmol/L Potassium 4.0 (3.5-5.1) mmol/L Chloride 106 (98-107) mmol/L Carbon Dioxide 23 (22-30) mmol/L Anion Gap 9.3 (5-15) MEQ/L BUN 7 (7-17) mg/dL Creatinine 0.64 (0.52-1.04) mg/dL Estimated GFR > 60.0 ML/MIN Glucose 96 (74-106) mg/dL Calcium 9.1 (8.4-10.2) mg/dL Total Bilirubin 0.30 (0.2-1.3) mg/dL AST 23 (14-36) U/L ALT 29 (0-35) U/L Alkaline Phosphatase 72 (38-126) U/L Serum Total Protein 7.1 (6.3-8.2) g/dL Albumin 3.9 (3.5-5.0) g/dL Urine Color (YELLOW) Urine Appearance (CLEAR) Urine pH (5-6) Ur Specific Tracy (1.005-1.025) Urine Protein (Negative) Urine Ketones (NEGATIVE) Urine Blood (0-5) Yunior/ul Urine Nitrite (NEGATIVE) Urine Bilirubin (NEGATIVE) Urine Urobilinogen (0-1) mg/dL Ur Leukocyte Esterase (NEGATIVE) Urine WBC (Auto) (0-5) /HPF Urine RBC (Auto) (0-2) /HPF U Epithel Cells (Auto) (FEW) /HPF Urine Bacteria (Auto) (NEGATIVE) /HPF Urine Glucose (NEGATIVE) mg/dL SARS-CoV-2 (PCR) NEGATIVE (NEGATIVE) 06/05/21 06/05/21 Range/Units 10:28 18:21 WBC 9.6 (4.0-10.5) K/mm3 RBC 4.91 (4.1-5.4) M/mm3 Hgb 12.4 (12.0-16.0) gm/dl Hct 40.4 (35-47) % MCV 82.3 (78-100) fl MCH 25.3 L (26-32) pg MCHC 30.7 L (32-36) g/dl RDW 16.2 H (11.5-14.0) % Plt Count 190 (150-450) K/mm3 MPV 11.3 H (7.5-11.0) fl Gran % 86.2 H (36.0-66.0) % Eos # (Auto) 0.01 (0-0.5) Absolute Lymphs (auto) 1.14 (1.0-4.6) Absolute Monos (auto) 0.16 (0.0-1.3) Lymphocytes % 11.9 L (24.0-44.0) % Monocytes % 1.7 (0.0-12.0) % Eosinophils % 0.1 (0.00-5.0) % Basophils % 0.1 (0.0-0.4) % Absolute Granulocytes 8.28 H (1.4-6.9) Basophils # 0.01 (0-0.4) Sodium (137-145) mmol/L Potassium (3.5-5.1) mmol/L Chloride (98-107) mmol/L Carbon Dioxide (22-30) mmol/L Anion Gap (5-15) MEQ/L BUN (7-17) mg/dL Creatinine (0.52-1.04) mg/dL Estimated GFR ML/MIN Glucose (74-106) mg/dL Calcium (8.4-10.2) mg/dL Total Bilirubin (0.2-1.3) mg/dL AST (14-36) U/L ALT (0-35) U/L Alkaline Phosphatase (38-126) U/L Serum Total Protein (6.3-8.2) g/dL Albumin (3.5-5.0) g/dL Urine Color STRAW (YELLOW) Urine Appearance CLEAR (CLEAR) Urine pH 7.0 (5-6) Ur Specific Tracy 1.004 (1.005-1.025) Urine Protein NEGATIVE (Negative) Urine Ketones NEGATIVE (NEGATIVE) Urine Blood MODERATE (0-5) Yunior/ul Urine Nitrite NEGATIVE (NEGATIVE) Urine Bilirubin NEGATIVE (NEGATIVE) Urine Urobilinogen NEGATIVE (0-1) mg/dL Ur Leukocyte Esterase NEGATIVE (NEGATIVE) Urine WBC (Auto) 3-5 (0-5) /HPF Urine RBC (Auto) NONE (0-2) /HPF U Epithel Cells (Auto) NONE (FEW) /HPF Urine Bacteria (Auto) NONE (NEGATIVE) /HPF Urine Glucose NEGATIVE (NEGATIVE) mg/dL SARS-CoV-2 (PCR) (NEGATIVE) - Procedures and Test Procedures and Tests throughout Hospitalization: Therapy Orders & Screens 06/05/21 14:44 Smoking Cessation Education ONCE Comment: Diagnosis: exploratory lap, right ovary removal Smoking Status: Current every day smoker How long have you smoked: 8 years Have you smoked in the past 12 months: Yes Approximately how many cigarettes per day: 7 Do you dip or chew tobacco: No Discharge Exam Wound Assessment: Skin/Wound Assessment Wound/Incision Assessment Start: 06/05/21 13:57 Text: Status: Active Freq: Q4H Protocol: Document 06/06/21 04:00 ST (Rec: 06/06/21 04:31 ST [id number]) Wound/Incision Assessment Lower Anterior Abdomen Wound Assessment Shift Assessment Wound Type Incision Dressing Status Dry & Intact Drainage Amount Minimal Primary Dressing Absorbant Pad Wound Photo Photo Taken No Final Diagnosis/Problem List - Final Discharge Diagnosis/Problem (1) S/P laparotomy Current Visit: Yes Status: Acute Code(s): Z98.890 - OTHER SPECIFIED POSTPROCEDURAL STATES (2) S/P right oophorectomy Current Visit: Yes Status: Acute Code(s): Z90.721 - ACQUIRED ABSENCE OF OVARIES, UNILATERAL - Discharge Disposition: Home, Self-Care Condition: Stable Prescriptions: New Hydrocodone/Acetaminophen [Hydrocodone-Acetamin 5-325 mg] 1 tab PO Q6HPRN PRN #20 tablet MDD 4 PRN Reason: Pain Discontinued Norgestimate-Ethinyl Estradiol [Tri-Sprintec] 1 each PO DAILY Follow up with: TELLO CERVANTES MD [Primary Care Provider] - PITA MICHAUD DO [ACTIVE STAFF] - 1 Week (KEEP DRESSING ON AND KEEP CLEAN AND DRY)
[2021-06-06 07:44] LABS: Absolute Neutrophil Ct (ANC) 5.57 (1.4-6.9); BASOPHIL % 0.1 % (0.0-0.4); Basophil (Absolute #) 0.01 (0-0.4); Eosinophil % 0.1 % (0.00-5.0); Eosinophil (Absolute #) 0.01 (0-0.5); Hematocrit 33.9 % (35-47); Hemoglobin 10.3 gm/dl (12.0-16.0); Lymphocyte (Absolute #) 2.88 (1.0-4.6); Lymphocytes % 31.1 % (24.0-44.0); Mean Cell Volume 82.7 fl (78-100); Mean Corpuscular Hemoglobin 25.1 pg (26-32); Mean Corpuscular Hgb Concent. 30.4 g/dl (32-36); Mean Platelet Volume 11.2 fl (7.5-11.0); Monocytes % 8.6 % (0.0-12.0); Neutrophil % 60.1 % (36.0-66.0); Platelet Count 185 K/mm3 (150-450); Red Cell Distribution Width 16.1 % (11.5-14.0); White Blood Count 9.3 K/mm3 (4.0-10.5)
[2021-06-06] MEDS ORDERED: ENOXAPARIN SODIUM SQ SCH (08:00)
[2021-06-06 08:05] LABS: ALBUMIN 3.4 g/dL (3.5-5.0); ALKALINE PHOSPHATASE 64 U/L (38-126); ANION GAP 12.1 MEQ/L (5-15); BLOOD UREA NITROGEN 5 mg/dL (7-17); CHLORIDE 105 mmol/L (98-107); Calcium 8.9 mg/dL (8.4-10.2); Carbon Dioxide 25 mmol/L (22-30); Creatinine 1 0.58 mg/dL (0.52-1.04); EST GLOMERULAR FILTRATION RATE > 60.0 ML/MIN; Glucose 102 mg/dL (74-106); Potassium 3.6 mmol/L (3.5-5.1); SGOT/AST 23 U/L (14-36); SGPT/ALT 24 U/L (0-35); SODIUM 138 mmol/L (137-145); Total Protein 6.4 g/dL (6.3-8.2)
[2021-06-06 09:42] VITALS: BP 129/75; PULSE 57; O2SAT 98
[2021-06-06] MEDS ORDERED: PHARMACY DOSING REQUEST MC SCH (10:00)
--- NOTE | 2021-06-06 10:00 | OP ---
SURGERY DATE/TIME: 06/05/2021 1010 PREOPERATIVE DIAGNOSIS: Large right ovarian dermoid cyst. POSTOPERATIVE DIAGNOSIS: Large right ovarian dermoid cyst. PROCEDURE: Laparotomy and right oophorectomy. SURGEON: Rickie Redd D.O. SWITCHBOARD OPERATOR: Candelario Sevilla surgical scrub tech. ANESTHESIA: General. ESTIMATED BLOOD LOSS: 50 cc. COMPLICATIONS: None. INDICATIONS: The risks, benefits, indications and alternatives of the procedure were reviewed with the patient prior to procedure. The patient understood the risk of infection, bleeding, bowel injury, bladder injury, ureteral injury, uterine perforation, possible pelvic infection and thromboembolic disorder associated with this procedure however desires to have this surgery as a possible means to alleviate her current medical condition. DESCRIPTION OF PROCEDURE AND FINDINGS: At this point the patient is taken to the operating room, placed in the supine position, given general anesthesia, prepared and draped in the usual sterile fashion. A Pfannenstiel incision was made approximately 2 cm above the symphysis pubis and extended sharply through the rectus fascia. The fascia was then incised bilaterally with curved Joseph scissors and the muscle of the intra-abdominal wall was in the midline with sharp and blunt dissection. The peritoneum was then grasped between two pickups, elevated and entered sharply with Metzenbaum scissors. The pelvis was examined and it was noted to have a large cyst on the right adnexa which appeared to be approximately 8 x 6 cm in dimension. The adnexa was brought up. It was lifted and was from the right side wall. At this time O'Terry - O'Baer retractor was placed into the incision. Bowel was packed away with moist laparotomy sponges. At this point a circumferential incision was made surrounding the cortex of the ovary. However, the cortex appeared to be macerated and there could not be any separation from the cortex and the cyst wall so at this point it was determined to perform definitive surgery with removal of the right adnexa for which the LigaSure was then used and it was placed over the utero-ovarian ligament where it was clamped, coagulated, cut and hemostasis was obtained and the adnexa was removed. Only the right ovary was removed. At this point hemostasis was obtained. The left ovary appeared to be within normal limits. The uterus appeared to be within normal limits as well. From this point irrigation was then taken place. The pelvis is irrigated copiously with warm normal saline. All operative sponge and instruments were removed from the abdomen at this point. The fascia was then closed with a running 0 Vicryl. Hemostasis assured. The muscles in the peritoneum were closed with 2-0 chromic suture in interrupted fashion. The subcutaneous layer was closed with 3-0 Vicryl suture. The skin was closed with absorbable júnior called INSORB. Sponge, lap, needle and instrument counts were correct x2. The patient was then taken to the recovery room in stable condition.
[2021-06-06] MEDS: Colace 100 MG PO SCH (10:57)
== END 2021-06-06 11:38 | disposition home or self-care (01) ==
LOC: MED SURG 06-05 06:24
PROVIDERS: ADMIT Obstetrics & Gynecology; ATTEND Obstetrics & Gynecology
DX: N83.201 Unspecified ovarian cyst, right side (principal); Z20.822 Contact with and (suspected) exposure to COVID-19; Z79.899 Other long term (current) drug therapy
CPT/HCPCS: 36415; 58940; 64488; 76937; 80053; 81001; 84703; 85025; 85027; 86301; 87086; 88341; 88342; G0378; U0003; 88305; 88307; 88313; J0171; J0690; J1100; J1650; J1885; J2250; J2405; J2704; J2795; J3010; A9270-GY

== ENCOUNTER 2022-02-03 21:03 | Emergency (ER) | payer OTHER ==
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
[2022-02-03 21:16] VITALS: O2SAT 100
[2022-02-03] MEDS ORDERED: AMOXIL 500 MG PO ONE (21:43)
[2022-02-03] MEDS ORDERED: PERCOCET TABLET 5/325MG PO STA (21:43)
[2022-02-03] MEDS ORDERED: PERCOCET TABLET 5/325MG ONE (21:47)
[2022-02-03] MEDS ORDERED: AMOXIL 500 MG ONE (21:47)
[2022-02-03 22:05] VITALS: BP 126/68; PULSE 65
== END 2022-02-03 22:05 | disposition home or self-care (01) ==
LOC: ED 21:03
DX: K02.9 Dental caries, unspecified (principal); K08.89 Other specified disorders of teeth and supporting structures; Z72.0 Tobacco use
CPT/HCPCS: 99283; A9270-GY

== ENCOUNTER 2022-02-12 19:05 | Emergency (ER) | payer OTHER ==
[2022-02-12 19:55] LABS: Absolute Neutrophil Ct (ANC) 6.19 x10^3/uL (1.4-6.9); Basophil (Absolute #) 0.02 x10^3/uL (0-0.4); Eosinophil % 0.4 % (0.00-5.0); Eosinophil (Absolute #) 0.04 x10^3/uL (0-0.5); Hematocrit 39.9 % (35-47); Hemoglobin 12.4 g/dL (12.0-16.0); Lymphocyte (Absolute #) 2.87 x10^3/uL (1.0-4.6); Lymphocytes % 29.7 % (24.0-44.0); Mean Cell Volume 85.3 fL (78-100); Mean Corpuscular Hemoglobin 26.5 pg (26-32); Mean Corpuscular Hgb Concent. 31.1 g/dL (32-36); Monocyte (Absolute #) 0.53 x10^3/uL (0.0-1.3); Monocytes % 5.5 % (0.0-12.0); Platelet Count 227 x10^3/uL (150-450); Red Blood Count 4.68 x10^6/uL (4.1-5.4); Red Cell Distribution Width 13.2 % (11.5-14.0); White Blood Count 9.7 x10^3/uL (4.0-10.5)
[2022-02-12 20:09] VITALS: O2SAT 100
[2022-02-12 20:13] LABS: Amphetamine,Urine NEGATIVE (NEGATIVE); Barbiturate,Urine NEGATIVE (NEGATIVE); Cocaine,Urine NEGATIVE (NEGATIVE); Methadone,Urine NEGATIVE (NEGATIVE); Opiate,Urine NEGATIVE (NEGATIVE); PCP,Urine NEGATIVE (NEGATIVE); THC,Urine NEGATIVE (NEGATIVE)
[2022-02-12 20:16] LABS: Benzodiazepine,Urine NEGATIVE (NEGATIVE)
[2022-02-12 20:19] LABS: ALBUMIN 4.5 g/dL (3.5-5.0); ALKALINE PHOSPHATASE 70 U/L (38-126); ANION GAP 14.3 MEQ/L (5-15); BLOOD UREA NITROGEN 12 mg/dL (7-17); CHLORIDE 102 mmol/L (98-107); Calcium 9.4 mg/dL (8.4-10.2); Carbon Dioxide 28 mmol/L (22-30); Creatinine 1 0.63 mg/dL (0.52-1.04); EST GLOMERULAR FILTRATION RATE > 60.0 ML/MIN; Glucose 99 mg/dL (74-106); Potassium 3.9 mmol/L (3.5-5.1); SGOT/AST 26 U/L (14-36); SGPT/ALT 26 U/L (0-35); SODIUM 139 mmol/L (137-145); Total Protein 7.7 g/dL (6.3-8.2)
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
[2022-02-13 01:21] VITALS: BP 120/60; PULSE 70
--- NOTE | 2022-02-13 08:44 | XRAY ---
Indication: Chest pain. Comparison: May 29, 2008 Portable chest again demonstrates normal heart and lungs with incidental tiny lingula calcified granuloma. Bony thorax intact with new multilevel bilateral thoracic fusion hardware.
--- NOTE | 2022-02-13 08:44 | XRAY ---
Indication: Chest pressure. Elevated d-dimer. Multiple contiguous axial images obtained through the chest using 100 cc Isovue 370 contrast and PE protocol. Comparison: None There is adequate opacification of the pulmonary arteries. However mild respiration artifact and beam artifact from multilevel bilateral posterior spinal fusion hardware limits evaluation of the more distal lobar and segmental branches. No obvious pulmonary embolus. Heart not enlarged. Aorta is normal in course and caliber. Tiny left hilar calcified nodes. No pathologic mediastinal/hilar lymphadenopathy. Moderate right hemidiaphragm elevation. Lungs inflated and clear with incidental tiny lingula calcified granuloma. Remaining bony thorax intact with mild dextroscoliosis centered at T8-T9. Limited upper abdomen demonstrates 4.6 cm hepatic hemangioma and tiny gallstones/gravel. Impression: 1. Pulmonary embolus evaluation limited by respiration and beam artifact. No obvious pulmonary embolus or acute cardiopulmonary abnormalities. 2. Incidental right hemidiaphragm elevation, hepatic hemangioma, tiny gallstones/gravel, spinal fusion hardware, and old granulomatous disease. Comment: Pulmonary interpretation made by [facility]. No critical discrepancy.
== END 2022-02-13 01:17 | disposition home or self-care (01) ==
LOC: ED 19:05
DX: R16.0 Hepatomegaly, not elsewhere classified (principal); K80.20 Calculus of gallbladder without cholecystitis without obstruction; D71 Functional disorders of polymorphonuclear neutrophils; R07.9 Chest pain, unspecified; Z72.0 Tobacco use
CPT/HCPCS: 36000; 36415; 71045; 71260; 80053; 80307; 84484; 85025; 85379; 93005; 93041; 94760; 99284

== ENCOUNTER → 2022-04-08 | Day surgery (SDC) | payer OTHER ==
[~2022-04-08] MED LIST changes: -BRETHINE 1 MG/ML SQ PRN; +BRIDION 200MG/2ML IV ONE; +Compazine 10 MG/2 ML ONE; +DIPRIVAN 200 MG/20 ML IV ONE; +Decadron 4 MG INJ ONE; +Ephedrine Sulfate 50 MG/ML ONE; +Lactated Ringers 1,000 ML IV ONE; +Lactated Ringers 1,000 ML IV SCH; +MARCAINE 0.25% PF/ EPI 1:200,000 ONE; +MEFOXIN 2 GM PREMIX** 2 GM/50 ML ML IV SCH; -PITOCIN 30 UNITS/ LR 500 ML 500 ML IV SCH; +ROBINUL ONE; +SUBLIMAZE 100 MCG/2 ML ONE; +Sensorcaine 0.25% 10 ML ONE; +TORAdol 30 mg Injection ONE; +Versed 2 MG/2 ML Injection ONE; -XYLOCAINE 1% HCL 20 ML MDV IJ PRN; +Xylocaine-Mpf 2% 5 Ml Vial ONE; +Zemuron 100 MG/10 ML ONE; +Zofran 4 MG/2 ML VIAL ONE
--- NOTE | 2022-04-08 09:14 | HP ---
DATE OF SURGERY: 04/08/2022 HISTORY OF PRESENT ILLNESS: The patient is a 26-year-old with pain radiating up to her chest. She had a study that showed she had cholelithiasis. It is felt she would benefit from laparoscopic cholecystectomy. PAST MEDICAL HISTORY: Denied any prior illnesses. Anxiety and depression. PAST SURGICAL HISTORY: Right oophorectomy in the past. Neck surgery. Back surgery. MEDICATIONS: Zoloft. Tri-Sprintec. ALLERGIES: NKDA. FAMILY HISTORY: Negative in regards to this problem. SOCIAL HISTORY: Smoker. She denies alcohol abuse. REVIEW OF SYSTEMS: Fourteen systems reviewed. No chest pain or palpitations. Other systems negative or noncontributory as above and per preadmission questionnaire. PHYSICAL EXAMINATION: GENERAL: No acute distress. HEENT: Sclerae nonicteric. NECK: No JVD. CHEST: Equal excursion, nonlabored breathing. CVS: Regular rate and rhythm. ABDOMEN: Soft. No peritoneal signs. EXTREMITIES: No significant edema. NEURO: Alert, oriented, moving extremities symmetrically. PSYCH: Appropriate mood and affect. IMPRESSION: Acute exacerbation of chronic cholecystitis, symptomatic cholelithiasis. I felt the patient would benefit from cholecystectomy. Shown the gallbladder pamphlet and risk sheet, explained the procedure in detail. Risks and benefits explained in detail including but not limited to bleeding or infection, risk of trocar injury or hernia, small risk of bowel, bladder or blood vessel injury, small risk of bile leak, bile duct injury, retained stone or sludge possibly requiring further procedure either open or ERCP, general risk of anesthesia, deep venous thrombosis, pulmonary embolism, pneumonia, perioperative risk of aches, pains, bloating, constipation and/or loose stools possibly chronic in nature as well as need for open procedure, possibility the procedure may not improve her symptoms that she may need need further work up and/or testing, endoscopy, other studies or procedures. She understands and agrees to the planned procedure, will proceed with laparoscopic cholecystectomy possible open as an outpatient.
[2022-04-08 11:11] VITALS: O2SAT 97
[2022-04-08 15:36] VITALS: BP 134/88; PULSE 72
--- NOTE | 2022-04-09 08:01 | OP ---
SURGERY DATE/TIME: 04/08/2022 1254 PREOPERATIVE DIAGNOSIS: Acute exacerbation of chronic cholecystitis, symptomatic cholelithiasis. POSTOPERATIVE DIAGNOSIS: Acute exacerbation of chronic cholecystitis, symptomatic cholelithiasis. PROCEDURE: Laparoscopic cholecystectomy. SURGEON: Dr. David Medina. SUBSEA ENGINEER: Jean Newton, Medical Student III. ANESTHESIA: General. ESTIMATED BLOOD LOSS: Minimal. INDICATIONS: As noted above. Risks and benefits explained in detail but not limited to and consent obtained. DESCRIPTION OF PROCEDURE AND FINDINGS: The patient was taken to the operating room. General anesthesia induced. Abdomen prepped and draped in usual sterile fashion. After official time out and no disagreement with planned procedure, a transverse incision made infraumbilical as she had a supraumbilical piercing. Fascia grasped and pulled upward. Veress needle inserted. However there did not seem to be quite pocket into the deep subcu to the peritoneal space eventually was able to get the needle in deep enough. Tested with saline. Good drop test was noted. Insufflating opening pressure of 0-15. A 5 mm right upper quadrant bladeless port and camera were inserted without difficulty followed by another 5 mm right upper quadrant port. In the area where the Veress needle had been placed, no evidence of any issues or injury. A 5 port was placed there. An 11 mm port was placed in the epigastrium. Gallbladder grasped. It had omental chronic adhesions dissected posterior, lateral to anterior fashion. The cystic duct and infundibular junction were slowly and carefully skeletonized until critical view obtained anteriorly and posteriorly. Once this is accomplished, the cystic duct and cystic artery clipped x3 and divided in the usual fashion. Clipped additional side branches off the cystic artery and cystic vein directly on the gallbladder wall. The gallbladder slowly and carefully dissected free from its dense attachment to the liver bed staying directly on the gallbladder wall. Just prior to releasing final attachments, the liver bed re-inspected. Clips noted in place in cystic duct and cystic artery stumps. No signs of any active bleeding or bile leakage. There was a little bit of ooze on the anterior edge of the liver with brief cautery. Small piece of Surgicel was left there. It appeared to have adequate hemostasis by the end of the case. Copious amount of irrigation accomplished lateral to the liver and subhepatic space irrigating clear. Gallbladder placed in the provided sac and pulled up into the epigastrium. The fascia spread slightly with clamp. It was then pulled free and passed off. Fascial defect closed with puncture closure device with #1 Vicryl under direct vision of the camera. Liver bed re-inspected. Clips noted in place cystic duct and cystic artery stumps. Raw anterior edge of the liver she had some fatty infiltration of the liver but no gross cirrhosis. Good hemostasis noted. At this point clips noted in place cystic duct and cystic artery stumps. No signs of any active bleeding or bile leakage. It was felt there was no benefit in drain placement. Pneumoperitoneum decompressed. The wound is irrigated out. Skin incision closed with 4-0 Vicryl. Steri-Strips and sterile dressing applied. The patient tolerated the procedure well. There were no immediate complications. Findings were discussed with the family out in the waiting area.
== END ==
LOC: SDC 10:44
PROVIDERS: ATTEND Surgery
DX: K80.10 Calculus of gallbladder with chronic cholecystitis without obstruction (principal)
CPT/HCPCS: 81025; J0694; J1100; J1885; J2250; J2405; J2704; J3010

== ENCOUNTER 2024-09-30 00:02 | Emergency (ER) | payer MEDICAID ==
[2024-09-30 00:42] VITALS: TEMP 98.1
[2024-09-30 01:03] LABS: HCG URINE TEST NEGATIVE (NEGATIVE)
[2024-09-30 01:05] LABS: Appearance Clear (Clear); Bacteria None Seen /HPF (None Seen); Bilirubin Negative (Negative); Blood Large (Negative); Epithelial Cells Rare /HPF (None Seen); Glucose, Urine Negative (Negative); Hyaline Casts NONE SEEN /LPF (0-2); Ketones Negative (Negative); Leukocyte Esterase Small (Negative); Nitrite Negative (Negative); Protein,Urine Dip Negative (Negative); Urobilinogen 0.2 mg/dL (0.2)
[2024-09-30 01:10] LABS: ALBUMIN 4.5 g/dL (3.5-5.0); BILIRUBIN,TOTAL 0.3 mg/dL (0.2-1.3); Calcium 9.2 mg/dL (8.4-10.2); Creatinine 1 0.67 mg/dL (0.52-1.04); EST GLOMERULAR FILTRATION RATE 122.8 ML/MIN; Potassium 3.6 mmol/L (3.5-5.1); Total Protein 7.8 g/dL (6.3-8.2)
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
[2024-09-30 01:16] LABS: Absolute Neutrophil Ct (ANC) 5.29 x10^3/uL (1.56-6.13); BASOPHIL % 0.6 % (0.1-1.2); Basophil (Absolute #) 0.05 x10^3/uL (0.01-0.08); Eosinophil % 1.7 % (0.7-5.8); Eosinophil (Absolute #) 0.13 x10^3/uL (0.04-0.36); Hematocrit 39.5 % (34.1-44.9); Hemoglobin 12.8 g/dL (11.2-15.7); IMMATURE GRAN # 0.02 x10^3u/L (0.001-0.031); IMMATURE GRAN % 0.3 % (0.001-0.429); Lymphocyte (Absolute #) 1.86 x10^3/uL (1.18-3.74); Lymphocytes % 23.6 % (19.3-51.7); Mean Cell Volume 86.1 fL (79.4-94.8); Mean Corpuscular Hemoglobin 27.9 pg (25.6-32.2); Mean Corpuscular Hgb Concent. 32.4 g/dL (32.2-35.5); Mean Platelet Volume 11.3 fL (9.4-12.3); Monocyte (Absolute #) 0.52 x10^3/uL (0.24-0.86); Monocytes % 6.6 % (4.7-12.5); Neutrophil % 67.2 % (34.0-71.1); Platelet Count 220 x10^3/uL (182-369); Red Blood Count 4.59 x10^6/uL (3.93-5.22); Red Cell Distribution Width 13.1 % (11.7-14.4); White Blood Count 7.9 x10^3/uL (3.98-10.04)
[2024-09-30] MEDS ORDERED: ROCEPHIN 1 GM / 100 ML NaCl 1 GM/100 ML IVPB IV ONE (01:39)
[2024-09-30] MEDS: ROCEPHIN 1 GM / 100 ML NaCl 1 GM/100 ML IVPB IV ONE (01:52)
[2024-09-30 02:29] LABS: CHLAMYDIA DNA DETECTED (NEGATIVE); GC DNA Probe NOT DETECTED (NEGATIVE)
[2024-09-30] MEDS ORDERED: Zithromax 250 MG TABLET ONE (02:49)
[2024-09-30] MEDS: Zithromax 250 MG TABLET PO ONE (02:56)
[2024-09-30 03:14] VITALS: BP 125/76; PULSE 74; RESP 18; O2SAT 99
== END 2024-09-30 03:13 | disposition home or self-care (01) ==
LOC: ED 00:02
DX: N39.0 Urinary tract infection, site not specified (principal); A74.9 Chlamydial infection, unspecified; R10.33 Periumbilical pain; Z79.899 Other long term (current) drug therapy
CPT/HCPCS: 36415; 80053; 81001; 81025; 82150; 83690; 85025; 87086; 87491; 87591; 96374; 99283; 99285; J0696; A9270-GY

== ENCOUNTER 2025-01-23 18:10 | Emergency (ER) | payer MEDICAID, OTHER ==
[2025-01-23 18:31] VITALS: RESP 18; TEMP 97.6; O2SAT 100
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
[2025-01-23] MEDS ORDERED: TORAdol 30 mg Injection ONE (18:33)
[2025-01-23] MEDS: TORAdol 30 mg Injection IM ONE (18:36)
[2025-01-23 18:56] VITALS: BP 127/76; PULSE 69
[2025-01-23] MEDS: Bactroban OINTMENT TP ONE (19:02)
== END 2025-01-23 19:08 | disposition home or self-care (01) ==
LOC: ED 18:10
DX: S39.92XA Unspecified injury of lower back, initial encounter (principal); L97.911 Non-pressure chronic ulcer of unspecified part of right lower leg limited to breakdown of skin; Z79.899 Other long term (current) drug therapy
CPT/HCPCS: 96372; 99282; 99283; J1885; A9270-GY